=== PATIENT | female | born 1940 | race Caucasian/White ===

== ENCOUNTER 2024-09-10 12:24 | Emergency (ER) | payer OTHER, SELFPAY ==
[2024-09-10] VITALS (7 sets, daily range): BP systolic 124–173; BP diastolic 88–105; PULSE 74–99; RESP 12–18; TEMP 36.4; O2SAT 94–99
--- NOTE | 2024-09-10 14:33 | ED_ITS ---
HPI - General Adult General Date Seen: 09/10/24 Chief complaint: Nausea/Vomiting Stated complaint: vomitting, dehydration, diarrhea Time Seen by Provider: 09/10/24 14:32 History of Present Illness HPI narrative: 84-year-old female presenting to the ER today with her son for evaluation of abdominal cramping, nausea, poor appetite, diarrhea. Also shortness of breath. Also grief. The patient [place] from the suburbs of [place], [place]. Past medical history includes cardiac disease (apparently has ejection fraction of 47%) no definite known core coronary artery blockages or stents. Patient does not know of any history of AFib. 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 She is not diabetic. No history of renal failure. She is on Bumex, metoprolol, losartan. She is on a statin for high cholesterol. Her unexpectedly about a month ago. Since then the patient has been having an extreme amount of grief. She came here to [place] to stay with her son. She is going through counseling and therapy because of her sign ificant grief. She has been having some trouble with intermittent diarrhea for the past few months. She describes that she saw a heel trimmer in [place] and apparently had some stool testing that was normal. She did not have a colonoscopy for the diarrhea. Her diarrhea has been getting worse lately. Also for the past several days she has had pretty significant lower abdominal cramping. She has had nausea. She has had very poor appetite. She has not been wanting to eat. She has not been wanting to drink. She has been at least forcing herself to take her pills every day. She has not had any fever. No bloody or black stools. She has been nauseous but not vomiting. She has been so weak because of dehydration that her family finally made her come to the ER today. She has also had some worsening shortness of breath lately. She is not sure if she is really short of breath or if she is just anxious and grieving. Related Data Previous Rx's ?Medication ?Instructions ?Recorded cephalexin 500 mg capsule 500 mg PO BID #10 caps 09/10/24 ondansetron HCl 4 mg tablet 4 mg PO Q8H PRN nausea and 09/10/24 vomiting #10 tabs Allergies Allergy/AdvReac Type Severity Reaction Status Date / Time No Known Drug Allergies Allergy Verified 09/10/24 16:17 [facility] Social History Smoking Status: Never smoker How often do you have a drink containing alcohol: never AUDIT-C Alcohol total score: 0 Non-prescribed substance use: denies use Exam Narrative: Exam Narrative: Constitutional: Appears well-developed and well-nourished. Alert. Initially uncomfortable anxious, nauseous. I get her an emesis bag and after doing some history and physical I am able to his sister and moving into bed and she is actually much calmer. Son is attentively at her side. HENT: Head: Atraumatic. Nose: Nose normal. Mouth/Throat: Oral mucosa is clear but dry.. no trismus. Pharynx normal. Tonsils symmetric. No tonsillar enlargement, erythema, or exudate. Eyes: Conjunctivae normal. EOM normal. Pupils equal, round, and reactive to light. No scleral icterus. Neck: Normal range of motion. Neck supple. No tracheal deviation present. No JVD Cardiovascular: Normal rate, regular rhythm. No gallop. No friction rub. No murmur heard. Symmetric radial artery pulses Pulmonary/Chest: Effort normal. No stridor. No respiratory distress. No wheezes. No rales. No rhonchi . No tenderness. Abdominal: Soft. Bowel sounds normal. No distension. No mass. Marked suprapubic and right lower quadrant tenderness. No rebound. Positive suprapubic guarding. Musculoskeletal: RUE: Normal range of motion. No tenderness. No deformity LUE: Normal range of motion. No tenderness. No deformity RLE: Normal range of motion. No edema. No tenderness. No deformity LLE: Normal range of motion. No edema. No tenderness. No deformity Neurological: Alert and oriented to person, place, and time. Normal strength. CN II-VII intact. No sensory deficit. GCS eye subscore is 4. GCS verbal subscore is 5. GCS motor subscore is 6. Normal coordination Skin: Skin is warm and dry. No rash noted. No pallor. Normal capillary refill. Psychiatric: Normal mood. Normal affect. Const: Vital Signs, click to edit/add: Vital Signs - 24 hr 09/10/24 12:37 09/10/24 16:00 Temperature 97.6 F Pulse Rate 80 Pulse Rate [Right Pulse Oximeter] 74 Respiratory Rate 18 14 Blood Pressure 140/96 H Blood Pressure [Ri ght Upper Arm] 137/88 Pulse Oximetry 99 96 Oxygen Delivery Me thod Room Air Course Course ED Course: Recheck-[id number]. Sitting up in bed. Son and svwaqvpl-th-ibq at her side. Patient says she feels little bit dizzy. If you feel sleepy. Still having some pain but not worse. No fever. She think she will be able to give a urine sample. With knee try p.o. challenge. Nausea is better. Discussed lab workup being reassuring so far. CT scan showing no acute inflammatory or surgical process. EKG nonischemic. Troponin still pending. Reevaluation(s) Reevaluation #1: Recheck-has been doing moderately well with p.o. challenge. Has had a few sips of water. His head 12 oz of apple juice. Eating some crackers. She did not want to eat her apple sauce. Overall she is feeling like she is keeping fluids down. Patient is requesting discharge in asking us to discontinue her IV. Reevaluation #2: Discussed test results with the patient, her son, her mywlldyv-uq-ibe. Family are supportive for her to discharge home in the water in that environment. Vital Signs Vital signs: Initial Vital Signs Temperature 97.6 F 09/10/24 12:37 Temperature Source Temporal Artery Scan 09/10/24 12:37 Pulse Rate 74 09/10/24 12:37 Pulse Rhythm Regular 09/10/24 12:37 Respiratory Rate 18 09/10/24 12:37 Blood Pressure 137/88 09/10/24 12:37 Blood Pressure Mean 104 09/10/24 12:37 Blood Pressure Position Sitting 09/10/24 12:37 Pulse Oximetry 99 09/10/24 12:37 Oxygen Delivery Method Room Air 09/10/24 12:37 Vital Signs Temperature 97.6 F 09/10/24 12:37 Pulse Rate 74 09/10/24 12:37 Respiratory Rate 18 09/10/24 12:37 Blood Pressure 137/88 09/10/24 12:37 Pulse Oximetry 99 09/10/24 12:37 Oxygen Delivery Method Room Air 09/10/24 12:37 Temperature 97.6 F 09/10/24 12:37 Pulse Rate 80 09/10/24 16:00 Respiratory Rate 14 09/10/24 16:00 Blood Pressure 140/96 H 09/10/24 16:00 Pulse Oximetry 96 09/10/24 16:00 Oxygen Delivery Method Room Air 09/10/24 12:37 Medications Administered Medications: Generic Name Dose Route Start Last Admin Trade Name Jordon PRN Reason Stop Dose Admin Hydromorphone HCl 0.5 mg 09/10/24 14:59 09/10/24 15:30 Hydromorphone 0.5 Mg/0.5 Ml Inj IVP 0.5 mg Q1H PRN Administration Pain Discontinued Medications Generic Name Dose Route Start Last Admin Trade Name Freq PRN Reason Stop Dose Admin Ketorolac Tromethamine 15 mg 09/10/24 14:59 09/10/24 15:29 Ketorolac 15 Mg/Ml Inj IVP 09/10/24 15:00 15 mg ONCE ONE Administration Ondansetron HCl 4 mg 09/10/24 14:59 09/10/24 15:29 Ondansetron 2 Mg/Ml Inj IVP 09/10/24 15:00 4 mg ONCE ONE Administration Medical Decision Making [facility] Narrative Medical decision making narrative: 84-year-old female presenting to the ER today by private car with her son and wyzepxyr-[id number] for evaluation of multiple symptoms. 1. GI. She has been experiencing some watery diarrhea for a couple of months and apparently has already had part of workup with GI in [place]. Workup so far is negative. She has had a ongoing diarrhea watery lately, also some new lower abdominal cramping. She was tender in the right lower quadrant and suprapubic draining on her exam today. Workup shows us slightly low white count. Normal hemoglobin. CT scan abdomen pelvis shows no acute inflammatory process such as appendicitis, diverticulitis, colitis no evidence for obstruction. Lactic acid is normal and no evidence for colitis on CT to suggest ischemia. LFTs and lipase are normal and she is not have any upper abdominal pain. At this point cause for her several week/month diarrhea is unclear. She has not had any further diarrhea here in the ER. No bloody or mucousy stools to suggest acute bacterial enteritis. The patient's speculates that her diarrhea of might be a side effect of some of her meds. We discussed that she should talk with her primary care provider about this and have medications adjusted by PCP. They agree. 2. Renal/electrolytes. She has had very poor oral intake at home for the past few days. Fortunately metabolic profile shows normal electrolytes, normal kidney function. Blood sugar normal. She does have some generalized weakness. 3. Cardiac. Also reporting some chronic shortness of breath. It has been worse lately but they attribute that to possible anxiety and grief because her about a month ago. Screening EKG shows sinus rhythm with a first- degree AV block and occasional PVCs but no acute ischemia. Troponin is normal. At this point in of the she is to be admitted for serial enzymes to screen for ACS.. 4. Psych. Patient wonders if all of this is ?in my head. ? There may be some underlay of anxiety and grief contributing/exacerbating her symptoms. She is not acutely depressed or at risk for self-harm. No evidence for psychosis. 5. Infectious disease. Does report a couple of months of watery diarrhea. Has been ongoing lately and on now also associated with poor appetite, nausea but no vomiting. No evidence for colitis or diverticulitis on her CT scan. No recent bloody or mucousy stool to raise concern for bacterial enteritis. She has apparently already had some outpatient workup through a GI doctor in [place] without a clear cause. At this point I do not see an indication to put her on antibiotics empirically for her diarrhea. Urinalysis shows positive nitrite which could indicate UTI. With her lower ab dominal pain will treat her with a course of cephalexin. 500 mg b.i.d. for 5 days. Urine culture pending. Lab Data Labs: Lab Results 09/10/24 09/10/24 Range/Units 15:00 15:25 WBC 4.22 L (4.50-11.00) K/uL RBC 4.98 (4.00-5.20) m/uL Hgb 14.5 (12.0-16.0) gm/dL Hct 47.4 (33.0-51.0) % MCV 95 (80-100) fL MCH 29 (26-34) pg MCHC 31 L (32-36) gm/dL RDW Coeff of Carole 13.1 (11.5-15.5) % Plt Count 179 (140-440) K/uL Neut % (Auto) 59.0 (42.0-72.0) % Lymph % (Auto) 23.2 (20-44) % [place] % (Auto) 14.7 H (0.0-11.0) % Eos % (Auto) 2.4 (0.0-7.0) % Baso % (Auto) 0.5 (0.0-3.0) % Neut # (Auto) 2.50 (1.7-7.0) K/uL Lymph # (Auto) 1.00 (0.90-2.90) K/uL [place] # (Auto) 0.60 (0.00-0.90) K/UL Eos # (Auto) 0.10 (0.00-0.50) K/uL Baso # (Auto) 0.00 (0.00-0.30) K/uL Abs Immat Gran (auto) 0.00 (0.00-0.30) K/uL Imm/Tot Granulo (auto) 0.2 % Sodium 138 (135-149) mmol/L Potassium 4.0 (3.6-5.1) mmol/L Chloride 107 (96-114) mmol/L Carbon Dioxide 24 (20-32) mmol/L Anion Gap 7 (7-15) mEq/L BUN 13 (7-30) mg/dL Creatinine 0.9 (0.5-1.5) mg/dL Estimated GFR 63 ml/min Glucose 86 (60-115) mg/dL Lactate 1.3 (0.5-1.9) mmol/L Calcium 9.4 (8.4-10.6) mg/dL Total Bilirubin 1.4 (0.1-1.5) mg/dL AST 25 (12-35) U/L ALT 23 (4-35) U/L Alkaline Phosphatase 89 (40-150) U/L Troponin I 0.01 (0.01-0.04) ng/mL Total Protein 6.9 (6.0-8.3) g/dL Albumin 4.2 (3.3-5.0) g/dL Lipase 76 (23-300) U/L Urine Color Yellow (Yellow) Urine Appearance Clear (Clear) Urine pH 5.5 (5.0-8.5) Ur Specific [place] 1.010 (1.000-1.030) Urine Protein Negative (Negative) Urine Glucose (UA) Negative (Negative) Urine Ketones Negative (Negative) Urine Blood Negative (Negative) Urine Nitrite Positive A (Negative) Urine Bilirubin Negative (Negative) Urine Urobilinogen 0.2 (0.2-1.0) Ur Leukocyte Esterase Negative (Negative) Urine RBC 0-2 (0-2) Urine WBC 2-5 (0-5) Ur Squamous Epith Cells None (None-Few) Urine Bacteria Many A (None) Imaging Data CT scan - abdomen: Attestation: I have reviewed the pertinent imaging results. Radiologist's impression: IMPRESSION: 1. Colonic diverticulosis without CT evidence of acute diverticulitis. 2. Moderate stool burden without evidence of bowel obstruction. 3. Small hiatal hernia. ECG Data Attestation: I personally reviewed and interpreted this ECG as follows: Interpretation: Normal sinus rhythm. Occasional PVCs Rate: 85 IN: 226. First degree AV block QRS axis: ST segment/T wave: No ST segment elevation or depression QTc: 454 Discharge Plan Discharge Clinical Impression: Nausea, Diarrhea, Acute UTI, Grief Patient Disposition: Home, Self-Care Condition: Stable Instructions: Urinary Tract Infection in Women (DC), Acute Diarrhea (ED) Additional Instructions: As we discussed, the cause for your diarrhea is not clear based on your workup here in the ER today. Please talk to your regular doctor about it. It is possible that the diarrhea as a side effect of your medications. Your urinalysis does show chemical findings of urinary tract infection. Were going to treat you with an xqzyfayena-fjvdpsdosk-dc treat your UTI. Use the Zofran if needed for nausea. If you have worsening pain, high fever, uncontrolled nausea vomiting, uncontrolled diarrhea or new symptoms such as bloody stool, worsening weakness, please come back to the ER right away to be rechecked. Prescriptions: New ondansetron HCl 4 mg tablet 4 mg PO Q8H PRN (Reason: nausea and vomiting) Qty: 10 0RF cephalexin 500 mg capsule 500 mg PO BID Qty: 10 0RF Follow Up/Referrals: Provider,Not a Local [Primary Care Provider] - Stand Alone Forms: [employer] Info Instructions
--- NOTE | 2024-09-10 14:59 | CRLHL7_ITS ---
For Patients: As a result of the Century Cures Act, medical imaging exams and procedure reports are released immediately into your electronic medical record. You may view this report before your referring provider. If you have questions, please contact your health care provider. INDICATION: LOWER ABD PAIN, DIARRHEA TECHNIQUE: CT of the abdomen and pelvis was obtained with 122 mL of Omnipaque 370 intravenous contrast. Please note that all CT scans at this facility use dose modulation, iterative reconstruction, and/or weight-based dosing when appropriate to reduce radiation dose to as low as reasonably achievable. COMPARISON: None. FINDINGS: Lower thorax: Mild bilateral dependent bronchiectasis. Scattered calcified granulomata. Minimal coronary artery calcification. Calcified right hilar lymph nodes. Liver and biliary tree: Normal. Gallbladder: Normal. Spleen: Mild scattered calcified granulomata. Pancreas: Normal. Adrenal glands: Normal. Kidneys and ureters: No hydronephrosis. No obstructing renal calculi. 1.7 centimeter right renal cyst (2/63). Gastrointestinal tract: Wwjlacgx-yu-lgrals sigmoid and descending colonic diverticulosis without CT evidence of acute diverticulitis. Moderate colonic diverticulosis is seen throughout the remaining colon. Moderate stool burden. No evidence of acute appendicitis. No evidence of bowel obstruction. Small hiatal hernia. Peritoneal cavity: Normal. Bladder: Normal. Pelvic organs: Status post hysterectomy. Vasculature: Mild calcification. Lymph nodes: Normal. Abdominal wall: Small fat containing periumbilical hernia. Musculoskeletal: Moderate degenerative changes of the visualized spine. Mild degenerative changes of the bilateral hips. IMPRESSION: 1. Colonic diverticulosis without CT evidence of acute diverticulitis. 2. Moderate stool burden without evidence of bowel obstruction. 3. Small hiatal hernia. Please note that all CT scans at this facility use dose modulation, iterative reconstruction, and/or weight-based dosing when appropriate to reduce radiation dose to as low as reasonably achievable. Dictated by Scott Snow MD @ 09/10/2024 5:02:47 PM (Electronically Signed)
[2024-09-10] MEDS: ONDANSETRON 2 MG/ML inj 4 MG IVP (15:29)
[2024-09-10] MEDS: KETOROLAC 15 MG/ML inj IVP (15:29)
[2024-09-10] MEDS: HYDROmorphone 0.5 mg/0.5 ml inj IVP (15:30)
[2024-09-10 15:42] LABS: Basophils Percent Auto 0.5 % (0.0-3.0); Eosinophils Percent Auto 2.4 % (0.0-7.0); Hematocrit 47.4 % (33.0-51.0); Hemoglobin* 14.5 gm/dL (12.0-16.0); Immature Granulocytes Pct Auto 0.2 %; Lactate* 1.3 mmol/L (0.5-1.9); Lymphocytes Percent Auto 23.2 % (20-44); Mean Corpuscular HGB Conc 31 gm/dL (32-36); Mean Corpuscular Hemoglobin 29 pg (26-34); Mean Corpuscular Volume 95 fL (80-100); Monocytes Percent Auto 14.7 % (0.0-11.0); Platelet Count* 179 K/uL (140-440); RDW Coefficient of Variation % 13.1 % (11.5-15.5); Red Blood Count 4.98 m/uL (4.00-5.20); White Blood Count* 4.22 K/uL (4.50-11.00)
[2024-09-10 15:44] LABS: Slide Review Reflex No
[2024-09-10 16:02] LABS: Albumin* 4.2 g/dL (3.3-5.0); Chloride* 107 mmol/L (96-114); Sodium* 138 mmol/L (135-149)
[2024-09-10 16:05] LABS: Alanine Aminotransferase* 23 U/L (4-35); Alkaline Phosphatase* 89 U/L (40-150); Anion Gap 7 mEq/L (7-15); Aspartate Amino Transferase* 25 U/L (12-35); Bilirubin Total* 1.4 mg/dL (0.1-1.5); Blood Urea Nitrogen* 13 mg/dL (7-30); Calcium* 9.4 mg/dL (8.4-10.6); Carbon Dioxide* 24 mmol/L (20-32); Creatinine* 0.9 mg/dL (0.5-1.5); Estimated Glomerular Filt Rate 63 ml/min; Glucose* 86 mg/dL (60-115); Lipase* 76 U/L (23-300); Total Protein* 6.9 g/dL (6.0-8.3)
[2024-09-10 17:20] LABS: Troponin I* 0.01 ng/mL (0.01-0.04)
[2024-09-10 17:59] LABS: Appearance Urine Clear (Clear); Bilirubin Urine Negative (Negative); Blood Urine Negative (Negative); Color Urine Yellow (Yellow); Glucose Urine Negative (Negative); Ketones Urine Negative (Negative); Leukocyte Esterase Urine Negative (Negative); Nitrite Urine Positive (Negative); Protein Urine Negative (Negative); Urobilinogen Urine 0.2 (0.2-1.0); pH Urine 5.5 (5.0-8.5)
[2024-09-10 18:05] LABS: RBC Urine 0-2 (0-2)
[2024-09-10 18:06] LABS: Bacteria Urine Many
--- NOTE | 2024-09-11 09:09 | ED.NURSE ---
Patient's son Kaushik called w/ patient present and reports that patient has developed a whole body rash. Here yesterday and dx w/ UTI, prescribed Keflex 500mg BID. Patient has taken 1 dose and awoke w/ rash. Denies any tongue or lip swelling, SOB, stridor/wheezing or other signs of allergic reaction. Spoke w/ Dr. Rosales and he gave verbal for Bactrim DS BID x 3 days. Also advised patient to try Benadryl for rash and to present to nearest ED if there are any worsening S/S of allergic reaction. Confirmed pharmacy preference w/ patient. Patient also mentions aside from rash her abdominal pain has improved. Patient and son verbalized understanding of all instructions. Advised to call back or represent to ED w/ new concerns.
--- NOTE | 2024-09-14 08:01 | ED.GENADULT ---
HPI - General Adult General Date Seen: 09/10/24 Chief complaint: Nausea/Vomiting Stated complaint: vomitting, dehydration, diarrhea Time Seen by Provider: 09/10/24 14:32 History of Present Illness HPI narrative: addendum to 09/10 Urine Cx grows pansensitive E coli. on keflex. Related Data Previous Rx's ?Medication ?Instructions ?Recorded cephalexin 500 mg capsule 500 mg PO BID #10 caps 09/10/24 ondansetron HCl 4 mg tablet 4 mg PO Q8H PRN nausea and 09/10/24 vomiting #10 tabs Allergies Allergy/AdvReac Type Severity Reaction Status Date / Time cephalexin (From Keflex) Allergy Intermediate Rash Verified 09/11/24 09:17 PFSH PFS Social History Smoking Status: Never smoker How often do you have a drink containing alcohol: never AUDIT-C Alcohol total score: 0 Non-prescribed substance use: denies use Course Vital Signs Vital signs: Initial Vital Signs Temperature 97.6 F 09/10/24 12:37 Temperature Source Temporal Artery Scan 09/10/24 12:37 Pulse Rate 74 09/10/24 12:37 Pulse Rhythm Regular 09/10/24 12:37 Respiratory Rate 18 09/10/24 12:37 Blood Pressure 137/88 09/10/24 12:37 Blood Pressure Mean 104 09/10/24 12:37 Blood Pressure Position Sitting 09/10/24 12:37 Pulse Oximetry 99 09/10/24 12:37 Oxygen Delivery Method Room Air 09/10/24 12:37 Vital Signs Temperature 97.6 F 09/10/24 12:37 Pulse Rate 74 09/10/24 12:37 Respiratory Rate 18 09/10/24 12:37 Blood Pressure 137/88 09/10/24 12:37 Pulse Oximetry 99 09/10/24 12:37 Oxygen Delivery Method Room Air 09/10/24 12:37 Temperature 97.6 F 09/10/24 18:43 Pulse Rate 74 09/10/24 18:43 Respiratory Rate 16 09/10/24 18:43 Blood Pressure 137/88 09/10/24 18:43 Pulse Oximetry 97 09/10/24 18:02 Oxygen Delivery Method Room Air 09/10/24 12:37 Medications Administered Medications: Discontinued Medications Generic Name Dose Route Start Last Admin Trade Name Freq PRN Reason Stop Dose Admin Hydromorphone HCl 0.5 mg 09/10/24 14:59 09/10/24 15:30 Hydromorphone 0.5 Mg/0.5 Ml Inj IVP 0.5 mg Q1H PRN Administration Pain Ketorolac Tromethamine 15 mg 09/10/24 14:59 09/10/24 15:29 Ketorolac 15 Mg/Ml Inj IVP 09/10/24 15:00 15 mg ONCE ONE Administration Ondansetron HCl 4 mg 09/10/24 14:59 09/10/24 15:29 Ondansetron 2 Mg/Ml Inj IVP 09/10/24 15:00 4 mg ONCE ONE Administration Medical Decision Making Lab Data Labs: Lab Results 09/10/24 09/10/24 Range/Units 15:00 15:25 WBC 4.22 L (4.50-11.00) K/uL RBC 4.98 (4.00-5.20) m/uL Hgb 14.5 (12.0-16.0) gm/dL Hct 47.4 (33.0-51.0) % MCV 95 (80-100) fL MCH 29 (26-34) pg MCHC 31 L (32-36) gm/dL RDW Coeff of Carole 13.1 (11.5-15.5) % Plt Count 179 (140-440) K/uL Neut % (Auto) 59.0 (42.0-72.0) % Lymph % (Auto) 23.2 (20-44) % [place] % (Auto) 14.7 H (0.0-11.0) % Eos % (Auto) 2.4 (0.0-7.0) % Baso % (Auto) 0.5 (0.0-3.0) % Neut # (Auto) 2.50 (1.7-7.0) K/uL Lymph # (Auto) 1.00 (0.90-2.90) K/uL [place] # (Auto) 0.60 (0.00-0.90) K/UL Eos # (Auto) 0.10 (0.00-0.50) K/uL Baso # (Auto) 0.00 (0.00-0.30) K/uL Abs Immat Gran (auto) 0.00 (0.00-0.30) K/uL Imm/Tot Granulo (auto) 0.2 % Sodium 138 (135-149) mmol/L Potassium 4.0 (3.6-5.1) mmol/L Chloride 107 (96-114) mmol/L Carbon Dioxide 24 (20-32) mmol/L Anion Gap 7 (7-15) mEq/L BUN 13 (7-30) mg/dL Creatinine 0.9 (0.5-1.5) mg/dL Estimated GFR 63 ml/min Glucose 86 (60-115) mg/dL Lactate 1.3 (0.5-1.9) mmol/L Calcium 9.4 (8.4-10.6) mg/dL Total Bilirubin 1.4 (0.1-1.5) mg/dL AST 25 (12-35) U/L ALT 23 (4-35) U/L Alkaline Phosphatase 89 (40-150) U/L Troponin I 0.01 (0.01-0.04) ng/mL Total Protein 6.9 (6.0-8.3) g/dL Albumin 4.2 (3.3-5.0) g/dL Lipase 76 (23-300) U/L Urine Color Yellow (Yellow) Urine Appearance Clear (Clear) Urine pH 5.5 (5.0-8.5) Ur Specific [place] 1.010 (1.000-1.030) Urine Protein Negative (Negative) Urine Glucose (UA) Negative (Negative) Urine Ketones Negative (Negative) Urine Blood Negative (Negative) Urine Nitrite Positive A (Negative) Urine Bilirubin Negative (Negative) Urine Urobilinogen 0.2 (0.2-1.0) Ur Leukocyte Esterase Negative (Negative) Urine RBC 0-2 (0-2) Urine WBC 2-5 (0-5) Ur Squamous Epith Cells None (None-Few) Urine Bacteria Many A (None) Discharge Plan Discharge Clinical Impression: Nausea, Diarrhea, Acute UTI, Grief Patient Disposition: Home, Self-Care Condition: Stable Instructions: Urinary Tract Infection in Women (DC), Acute Diarrhea (ED) Additional Instructions: As we discussed, the cause for your diarrhea is not clear based on your workup here in the ER today. Please talk to your regular doctor about it. It is possible that the diarrhea as a side effect of your medications. Your urinalysis does show chemical findings of urinary tract infection. Were going to treat you with an fsqbjjurtb-kqnouqjgxr-vc treat your UTI. Use the Zofran if needed for nausea. If you have worsening pain, high fever, uncontrolled nausea vomiting, uncontrolled diarrhea or new symptoms such as bloody stool, worsening weakness, please come back to the ER right away to be rechecked. Prescriptions: New ondansetron HCl 4 mg tablet 4 mg PO Q8H PRN (Reason: nausea and vomiting) Qty: 10 0RF cephalexin 500 mg capsule 500 mg PO BID Qty: 10 0RF Follow Up/Referrals: Provider,Not a Local [Primary Care Provider] - Stand Alone Forms: [employer] Info Instructions
== END 2024-09-10 18:20 | disposition home or self-care (01) ==
PROVIDERS: Emergency Provider Emergency Medicine
DX: N39.0 Urinary tract infection, site not specified (principal); Z63.4 Disappearance and death of family member
CPT/HCPCS: 36415; 74177; 80053; 81001; 83605; 83690; 84484; 85025; 87086; 87186; 93005; 96374; 96375; 99281; 99284; 99285; J1171; J1885; J2405; Q9967

== ENCOUNTER 2025-01-30 11:06 | Emergency (ER) | payer OTHER, SELFPAY ==
--- OUTSIDE RECORDS SUMMARY | 2025-01-30 11:09 | XMS_ITS | Clinical Summary ---
Author Organization [facility] Address [address] [place] [id number] Care Team Providers Care Electrocardiograph Technician Name Role Phone Clinician, Not Found MD Primary Care Provider Un available Source Comments You are receiving this document as you are listed as the primary care provider,follow-up provider, or the patient has been referred to you for consultation.This is in compliance with the Medicare and[facility] EHR Incentive Program,which states Providers who transition their patient to another setting of careor provider of care or refers their patient to another provider of care shouldprovide summary care record for each transition of care or referral. [facility] Allergies No known active allergies Medications apixaban (ELIQUIS) 5 MG tablet Take by mouth two times a day. Active lisinopril (ZESTRIL) 2.5 MG tablet Take 2.5 mg by mouth daily. Active acetaminophen-c odeine (TYLENOL NO. . 3) 300-30 MG tablet Take 1-2 Tablets by mouth every 6 hours as needed for Pain. 15 Tablet 07/09/2019 Active Active Problems No known active problems Social History Tobacco Use Types Packs/Day Years Used Date Smoking Tobacco: Never Smokeless Tobacco: Never Comments No Sex and Gender Information Value Date Recorded Sex Assigned at Not on file Legal Sex Female 11:46 AM CDT Gender Identity Not on file Sexual Orientation Not on file Last Filed Vital Signs Vital Sign Reading Time Taken Comments Blood Pressure 143/76 07/09/2019 11:22 AM CDT Pulse 79 07/09/2019 11:22 AM CDT Temperature 36.7 C (98 F) 07/09/2019 11:22 AM CDT Respiratory Rate 18 07/09/2019 11:22 AM CDT Oxygen Saturation 98% 07/09/2019 11:22 AM CDT Inhaled Oxygen Concentration - - Weight - - Height - - Body Mass Index - - Plan of Treatment Health Maintenance Due Date Last Done Comments DTaP/Tdap/Td (1 - Tdap) 1960 Pneumococcal 50+ Yrs (1 of 1 - PCV) 1991 Zoster/Shingles (1 of 2) 1991 RSV (1 - 1-dose 75+ series) 2016 COVID-19 Vaccine (1 - 2023-2 5 season) 2024 Influenza (#1) 2024 Medicare Annual Wellness Visit 10/31/2024 HepA Aged Out No longer eligi ble based on patient's age to complete this topic HepB Aged Out No longer eligi ble based on patient's age to complete this topic Hib Aged Out No longer eligi ble based on patient's age to complete this topic IPV (Polio) Aged Out No longer eligi ble based on patient's age to complete this topic MCV4 Aged Out No longer eligi ble based on patient's age to complete this topic Meningococcal B Aged Out No longer el igible based on patient's age to complete this topic Insurance Care Teams Electrocardiograph Technician Relationship Specialty Start Date End Date Clinician, Not Found, [place] [address] PCP - General 5/18/15
[2025-01-30 11:35] VITALS: BP 152/84; PULSE 84; RESP 18; TEMP 36.9; O2SAT 94; BMI 37.4
[2025-01-30 12:06] VITALS: BP 148/86; PULSE 75; RESP 18; O2SAT 96
--- NOTE | 2025-01-30 12:48 | ED.GENADULT ---
HPI - General Adult General Chief complaint: Extremity Pain/Injury, Lower Stated complaint: L side pain Time Seen by Provider: 01/30/25 11:09 History of Present Illness HPI narrative: This 84-year-old female resides in [place] and is visiting here because she has children here. She states that she is here for an extended time because her recently and her daughter had a stroke. She has a history of osteoarthritis in her left knee and has been getting steroid injections over the past couple years. She has had increased pain recently and is due for another injection. She uses a cane for ambulating and now is reporting pain in her left groin and hip region. She does not report any fall or injury event. She is not taking any medicines for pain. She states that she is on Eliquis because of a previous pulmonary embolism. Related Data Home Medications ?Medication ?Instructions ?Recorded ?Confirmed apixaban 5 mg tablet (Eliquis) 5 mg PO BID 11/05/24 01/30/25 bumetanide 0.5 mg tablet 0.5 mg PO QDAY PRN 11/05/24 01/30/25 dapagliflozin propanediol 10 mg 10 mg PO QAM 11/05/24 11/05/24 tablet (Farxiga) losartan 50 mg tablet 50 mg PO QDAY 11/05/24 01/30/25 mecobalamin (vitamin B12) 2,500 1,000 mcg PO 11/05/24 11/05/24 mcg chewable tablet metoprolol succinate 25 mg 25 mg PO QDAY 11/05/24 01/30/25 tablet,extended release 24 hr rosuvastatin 5 mg tablet 5 mg PO QDAY 11/05/24 01/30/25 Previous Rx's ?Medication ?Instructions ?Recorded albuterol sulfate 90 mcg/actuation 2 puff inhalation Q4-6H PRN 11/05/24 aerosol inhaler shortness of breath or wheezing #8.5 grams cyclobenzaprine 10 mg tablet 10 mg PO TID #15 tabs 01/30/25 hydrocodone 5 mg-acetaminophen 325 1 tab PO Q4-6H PRN pain #15 tabs 01/30/25 mg tablet methylprednisolone 4 mg tablets in See Rx Instructions PO .COMPLEX 01/30/25 a dose pack (Medrol (Deshawn)) #21 ea Allergies Allergy/AdvReac Type Severity Reaction Status Date / Time cephalexin (From [employer]) Allergy Intermediate Rash Verified 11/05/24 15:23 Review of Systems Status of ROS: Reports: 10 or more systems reviewed and unremarkable except as noted in History and below Narrative: Constitutional: No fevers, no weight gain or loss. Eyes: No discharge. No vision changes. HENT: No congestion, no sore throat, no ear pain. Cardiovascular: No chest pain, no palpitations. Respiratory: No shortness of breath, no wheezes, no cough. Gastrointestinal: No abdominal pain, no vomiting, no diarrhea. Genitourinary: No dysuria, no hematuria. Musculoskeletal: Normal range of motion. Left hip and knee pain as described above. Skin: No rashes, no pruritis. Neurological: No dizziness, weakness, sensory change, speech change. Endo/Heme/Allergies: No bruising or bleeding. No polydipsia. Pysch: no suicidality, no anxiety. All other systems reviewed and are negative. PFSH PFSH Social History Smoking Status: Never smoker Do you use any of these nicotine containing products: None Second hand tobacco smoke exposure: No How often do you have a drink containing alcohol: never How often do you have six or more drinks on one occasion: Never AUDIT-C Alcohol total score: 0 Non-prescribed substance use: denies use service: No Exam Narrative: Exam Narrative: Constitutional: Well-developed, well-nourished, no acute distress. HEENT: Normocephalic, atraumatic. Neck: Normal range of motion. Nontender. Supple. Heart: Regular. No murmurs. Normal rate. Intact distal pulses. Lungs: Clear to auscultation. No chest discomfort. No wheezes, rhonchi, or rales. Abdomen: Normal bowel sounds. Nontender. No rebound tenderness. Genitalia: Deferred. Back: No midline tenderness. Normal range of motion. Extremities: Normal range of motion. No injury. She has chronic arthritic pain in her left knee. Skin: Intact. No rash. Warm. No erythema or pallor. Neurologic: No altered sensation. No weakness. Alert and oriented. Psychiatric: No suicidality. No anxiety or depression. No insomnia. Nursing notes and vitals signs are reviewed. Const: Vital Signs, click to edit/add: Vital Signs - 24 hr 01/30/25 11:35 01/30/25 12:06 Temperature 98.5 F Pulse Rate 75 Pulse Rate [Pulse Oximeter] 84 Respiratory Rate 18 18 Blood Pressure 148/86 H Blood Pressure [Ri ght Upper Arm] 152/84 H Pulse Oximetry 94 96 Oxygen Delivery Me thod Room Air Course Vital Signs Vital signs: Initial Vital Signs Temperature 98.5 F 01/30/25 11:35 Temperature Source Temporal Artery Scan 01/30/25 11:35 Pulse Rate 84 01/30/25 11:35 Respiratory Rate 18 01/30/25 11:35 Blood Pressure 152/84 H 01/30/25 11:35 Blood Pressure Mean 106 H 01/30/25 11:35 Pulse Oximetry 94 01/30/25 11:35 Oxygen Delivery Method Room Air 01/30/25 11:35 Vital Signs Temperature 98.5 F 01/30/25 11:35 Pulse Rate 84 01/30/25 11:35 Respiratory Rate 18 01/30/25 11:35 Blood Pressure 152/84 H 01/30/25 11:35 Pulse Oximetry 94 01/30/25 11:35 Oxygen Delivery Method Room Air 01/30/25 11:35 Temperature 98.5 F 01/30/25 11:35 Pulse Rate 75 01/30/25 12:06 Respiratory Rate 18 01/30/25 12:06 Blood Pressure 148/86 H 01/30/25 12:06 Pulse Oximetry 96 01/30/25 12:06 Oxygen Delivery Method Room Air 01/30/25 11:35 Medical Decision Making MDM Narrative Medical decision making narrative: This patient comes in with chronic left knee pain and now has developed some pain in her groin. She states that she often does not have any pain there but if she moves in a certain way or makes certain maneuver this pain becomes rather significant in the medial aspect of her left hip into the groin. She does not report any injury event or strenuous activity recently. She is visiting from [place] and plans to return home soon and will follow up with her primary physician there. There is no mechanism of injury today that requires imaging studies. I did offer such in the patient declined them. She did receive prescription for [place], Flexeril, and Medrol Dosepak to help with her symptoms. Discharge Plan Discharge Clinical Impression: Acute knee pain, Acute hip pain Patient Disposition: Home, Self-Care Condition: Stable Additional Instructions: Take medication as needed and directed. Follow up with MD for ongoing management. Return if worsening. Prescriptions: New cyclobenzaprine 10 mg tablet 10 mg PO TID Qty: 15 0RF hydrocodone-acetaminophen 5-325 mg tablet 1 tab PO Q4-6H PRN (Reason: pain) Qty: 15 0RF methylprednisolone [Medrol (Deshawn)] 4 mg tablets,dose pack See Rx Instructions .ROUTE .COMPLEX Qty: 21 0RF Rx Instructions: orally per package directions No Action mecobalamin (vitamin B12) 2,500 mcg tablet,chewable 1,000 mcg PO losartan 50 mg tablet 50 mg PO QDAY dapagliflozin propanediol [Farxiga] 10 mg tablet 10 mg PO QAM Eliquis 5 mg tablet 5 mg PO BID bumetanide 0.5 mg tablet 0.5 mg PO QDAY PRN rosuvastatin 5 mg tablet 5 mg PO QDAY metoprolol succinate 25 mg tablet extended release 24 hr 25 mg PO QDAY albuterol sulfate 90 mcg/actuation HFA aerosol inhaler 2 puff inhalation Q4-6H PRN (Reason: shortness of breath or wheezing) Qty: 8.5 0RF Follow Up/Referrals: Provider,Not a Local [Primary Care Provider] - Stand Alone Forms: [facility] Info Instructions
--- OUTSIDE RECORDS SUMMARY | 2025-01-30 13:13 | XMS_ITS | Clinical Summary ---
Author Organization [facility] Address [address] [place] [id number] Care Team Providers Care Fast Food Team Member Name Role Phone Clinician, Not Found MD Primary Care Provider Un available Source Comments You are receiving this document as you are listed as the primary care provider,follow-up provider, or the patient has been referred to you for consultation.This is in compliance with the Medicare and[facility] Incentive Program,which states Providers who transition their patient to another setting of careor provider of care or refers their patient to another provider of care shouldprovide summary care record for each transition of care or referral. [facility] Allergies No known active allergies [...] to complete this topic Insurance Care Teams Fast Food Team Member Relationship Specialty Start Date End Date Clinician, Not Found, [place] [address] PCP - General 5/18/15
== END 2025-01-30 13:15 | disposition home or self-care (01) ==
PROVIDERS: Emergency Provider Emergency Medicine Emergency Medical Services
DX: M25.562 Pain in left knee (principal); M25.552 Pain in left hip
CPT/HCPCS: 99283; 99284

== ENCOUNTER 2025-05-08 10:39 | Inpatient (IN) | payer OTHER, SELFPAY ==
[2025-05-08] VITALS (30 sets, daily range): BP systolic 94–182; BP diastolic 43–142; PULSE 73–145; RESP 13–25; TEMP 36.1–36.7; O2SAT 91–99; BMI 35.0
--- OUTSIDE RECORDS SUMMARY | 2025-05-08 10:41 | XMS_ITS | Clinical Summary ---
Author Organization [facility] Address [address] [place] [id number] Care Team Providers Care Nurse Assistant Name Role Phone Clinician, Not Found MD Primary Care Provider Un available Source Comments You are receiving this document as you are listed as the primary care provider,follow-up provider, or the patient has been referred to you for consultation.This is in compliance with the Medicare and[facility]centive [facility],which states Providers who transition their patient to another setting of careor provider of care or refers their patient to another provider of care shouldprovide summary care record for each transition of care or referral. [facility] Allergies No known active allergies [...] Maintenance Due Date Last Done Comments DTaP/Tdap/Td Vaccine (1 - Tdap) 1960 Pneumococcal Vaccine 50+ Yrs (1 of 1 - PCV) 1991 Zoster/Shingles Vaccine (1 of 2) 1991 RSV Vaccine (1 - 1-dose 75+ series) 2016 COVID-19 Vaccine (1 - 2023-2 5 season) 2024 Medicare Annual Wellness Visit 10/31/2024 Influenza Vaccine (#1) 2025 HepA Vaccine Aged Out No longer eligi ble based on patient's age to complete this topic HepB Vaccine Aged Out No longer eligi ble based on patient's age to complete this topic Hib Vaccine Aged Out No longer eligi ble based on patient's age to complete this topic IPV (Polio) Vaccine Aged Out No longe r eligible based on patient's age to complete this topic MCV4 Vaccine Aged Out No longer eligi ble based on patient's age to complete this topic Meningococcal B Vaccine Aged Out No l onger eligible based on patient's age to complete this topic Insurance Member Subscriber Plan / Payer (Ef fective 2014-Present) Name:Nitza Tamez Relation to Subscriber:Self Name:Nitza Tamez Payer ID:Not on file Type:Medicare Address: [facility] [address] [id number] Care Teams Nurse Assistant Relationship Specialty Start Date End Date Clinician, Not Found, [place] [address] PCP - General 03/17/15
--- NOTE | 2025-05-08 11:15 | CRLHL7_ITS ---
For Patients: As a result of the Century Cures Act, medical imaging exams and procedure reports are released immediately into your electronic medical record. You may view this report before your referring provider. If you have questions, please contact your health care provider. INDICATION: Abdominal pain COMPARISON: 09/10/2024 CT of the abdomen and pelvis TECHNIQUE: Single frontal radiographic view(s) of the abdomen. FINDINGS: No focal abnormally dilated loops of bowel are detected. Moderate colonic stool volume. There are osseous degenerative changes. IMPRESSION: Moderate colonic stool volume. Dictated by Ori Rushing MD @ 05/08/2025 11:57:48 AM (Electronically Signed)
[2025-05-08] MEDS: ONDANSETRON 2 MG/ML inj 4 MG IVP (12:21)
[2025-05-08 12:30] LABS: Lactate* 1.6 mmol/L (0.5-1.9)
[2025-05-08 12:31] LABS: Hematocrit 46.5 % (33.0-51.0); Hemoglobin* 14.2 gm/dL (12.0-16.0); Immature Granulocytes Abs Auto 0.02 K/uL (0.00-0.30); Immature Granulocytes Pct Auto 0.3 %; Mean Corpuscular HGB Conc 31 gm/dL (32-36); Mean Corpuscular Hemoglobin 29 pg (26-34); Mean Corpuscular Volume 96 fL (80-100); RDW Coefficient of Variation % 14.1 % (11.5-15.5); Red Blood Count 4.86 m/uL (4.00-5.20); White Blood Count* 7.09 K/uL (4.50-11.00)
[2025-05-08 12:33] LABS: Lymphocytes Absolute Auto 1.00 K/uL (0.90-2.90); Slide Review Reflex No
[2025-05-08 12:43] LABS: Appearance Urine Clear (Clear)
[2025-05-08 12:48] LABS: Albumin* 4.0 g/dL (3.3-5.0); Chloride* 111 mmol/L (96-114); Mono Screen* Negative (Negative)
[2025-05-08 12:49] LABS: Potassium* 3.9 mmol/L (3.6-5.1); Sodium* 142 mmol/L (135-149)
[2025-05-08 12:51] LABS: Alanine Aminotransferase* 37 U/L (4-35); Alkaline Phosphatase* 74 U/L (40-150); Anion Gap 8 mEq/L (7-15); Aspartate Amino Transferase* 28 U/L (12-35); Bilirubin Direct* 0.1 mg/dL (0.0-0.5); Bilirubin Total* 1.7 mg/dL (0.1-1.5); Blood Urea Nitrogen* 19 mg/dL (7-30); Carbon Dioxide* 23 mmol/L (20-32); Creatinine* 0.9 mg/dL (0.5-1.5); Est. Creatinine Clearance* 39.20; Estimated Glomerular Filt Rate 63 ml/min; Total Protein* 6.8 g/dL (6.0-8.3)
[2025-05-08 12:52] LABS: Calcium* 9.3 mg/dL (8.4-10.6); Creatine Kinase* 37 U/L (41-117); Glucose* 105 mg/dL (60-115)
[2025-05-08 12:57] LABS: Acetaminophen* < 10.0 ug/mL (10.0-30.0); Salicylate* < 1.0 mg/dL (1.0-10)
--- NOTE | 2025-05-08 12:57 | ED.GENADULT ---
HPI - General Adult General Chief complaint: Weakness <Bell Quinn MD - Last Filed: 05/08/25 15:56> Stated complaint: Legs turning blue, constipation, weakness <Bell Quinn MD - Last Filed: 05/08/25 15:56> Time Seen by Provider: 05/08/25 10:59 <Bell Quinn MD - Last Filed: 05/08/25 15:56> Source: patient and family <Bell Quinn MD - Last Filed: 05/08/25 15:56> Mode of arrival: ambulatory <Bell Quinn MD - Last Filed: 05/08/25 15:56> Limitations: no limitations <Bell Quinn MD - Last Filed: 05/08/25 15:56> History of Present Illness HPI narrative: 85-year-old female coming in today with multiple concerns. Patient states that ?everything hurts?. She states that she can not sleep at night but her son states that she sleeps from 18-20 hours per day. She naps frequently throughout the day. States that she can not eat anything, states that everything she does if makes her want to throw up. Oscillates between diarrhea and constipation. Has not had a bowel movement for 4 days. Feels abdominal pressure discomfort. Patient states that she is exhausted, has no energy just feels like something is wrong with her. She denies a headache, blurry vision, ringing in her ears, confusion, word-finding difficulty. She does endorse dizziness, especially with standing that has been going on for weeks. She also sometimes feels like she has to hold on to the wall when walking - unclear if because of dizziness or weakness. recently , this was a very traumatic experience. Grief and trauma are at play according to her son. Family also concerned because she had an episode where her legs turned blue earlier today. History of DVTs, on anticoagulation. History of cardiac disease. Looking through patient's record she has been having intermittent diarrhea for quite some time along with lower abdominal cramping. Nausea is also not new today. And has been documented in previous visits as far as August of last year. <Bell Quinn MD - Last Filed: 05/08/25 15:56> Related Data Home medications: Home Medications ?Medication ?Instructions ?Recorded ?Confirmed apixaban 5 mg tablet (Eliquis) 5 mg PO BID 11/05/24 05/08/25 bumetanide 0.5 mg tablet 0.5 mg PO QDAY PRN 11/05/24 05/08/25 dapagliflozin propanediol 10 mg 10 mg PO QAM 11/05/24 11/05/24 tablet (Farxiga) losartan 50 mg tablet 50 mg PO QDAY 11/05/24 05/08/25 mecobalamin (vitamin B12) 2,500 1,000 mcg PO DAILY 11/05/24 05/08/25 mcg chewable tablet rosuvastatin 5 mg tablet 5 mg PO QDAY 11/05/24 05/08/25 cyanocobalamin (vitamin B-12) 1,000 mcg PO DAILY 05/08/25 05/08/25 1,000 mcg capsule escitalopram oxalate 5 mg tablet 5 mg PO DAILY 05/08/25 05/08/25 Previous Rx's ?Medication ?Instructions ?Recorded albuterol sulfate 90 mcg/actuation 2 puff inhalation Q4-6H PRN 11/05/24 aerosol inhaler shortness of breath or wheezing #8.5 grams cyclobenzaprine 10 mg tablet 10 mg PO TID #15 tabs 01/30/25 hydrocodone 5 mg-acetaminophen 325 1 tab PO Q4-6H PRN pain #15 tabs 01/30/25 mg tablet methylprednisolone 4 mg tablets in See Rx Instructions PO .COMPLEX 01/30/25 a dose pack (Medrol (Deshawn)) #21 ea <Bell Quinn MD - Last Filed: 05/08/25 15:56> Allergies/adverse reactions: Allergies Allergy/AdvReac Type Severity Reaction Status Date / Time cephalexin (From Keflex) Allergy Intermediate Rash Verified 05/08/25 10:58 lexy Allergy Mild Rash Uncoded 05/08/25 10:58 <Bell Quinn MD - Last Filed: 05/08/25 15:56> Review of Systems Status of ROS: Reports: 10 or more systems reviewed and unremarkable except as noted in History and below <Bell Quinn MD - Last Filed: 05/08/25 15:56> PFSH PFS Social History: Social History Smoking Status: Never smoker Do you use any of these nicotine containing products: None Second hand tobacco smoke exposure: No How often do you have a drink containing alcohol: never How often do you have six or more drinks on one occasion: Never AUDIT-C Alcohol total score: 0 Non-prescribed substance use: denies use service: No <Bell Quinn MD - Last Filed: 05/08/25 15:56> Exam Narrative: Exam Narrative: Well-nourished well-developed patient, tearful. Alert and oriented x3. Answers questions appropriately. Mood is quite sad. Thoughts are goal oriented and rational. No tangential or magical thinking noted. Patient speaks in full sentences without needing to catch her breath. Patient appears quite tired with large dark circles under her eyes. HEENT: Normocephalic atraumatic. Pupils are equally round reactive to light. Extraocular muscles are intact. Conjunctivae are moist without any icterus noted. Moist mucous membranes. Cardiovascular: Heart is irregularly irregular. Tachycardic. Lungs: Clear to auscultation bilaterally no wheezes rhonchi or rales are appreciated. Patient takes deep breaths without any discomfort. Abdomen: Soft and nondistended with normal bowel sounds. No tenderness with firm auscultation with the stethoscope. Extremities: Bilateral lower extremities are without edema. Normal DP and PT pulses. Normal coloration, multiple spider veins. Normal capillary refill. Skin: Well perfused without any obvious rashes. <Bell Quinn MD - Last Filed: 05/08/25 15:56> Const: Vital Signs, click to edit/add: Vital Signs - 24 hr 05/08/25 10:44 05/08/25 12:20 05/08/25 12:42 Temperature 97.0 F L Pulse Rate 125 H Pulse Rate [Right Pulse Oximeter] 74 Respiratory Rate 20 20 Blood Pressure 97/83 Blood Pressure [Le ft Upper Arm] 119/80 Pulse Oximetry 97 96 97 Oxygen Delivery Me thod Room Air Oxygen Flow Rate 05/08/25 13:02 05/08/25 13:32 05/08/25 14:38 Temperature Pulse Rate 116 H 103 H 145 H Pulse Rate [Right Pulse Oximeter] Respiratory Rate 16 20 24 Blood Pressure 96/77 116/96 H 104/70 Blood Pressure [Le ft Upper Arm] Pulse Oximetry 99 98 93 Oxygen Delivery Me thod Oxygen Flow Rate 05/08/25 14:47 05/08/25 15:01 05/08/25 15:16 Temperature Pulse Rate 137 H 98 90 Pulse Rate [Right Pulse Oximeter] Respiratory Rate 20 14 17 Blood Pressure 123/100 H 102/80 113/81 Blood Pressure [Le ft Upper Arm] Pulse Oximetry 94 98 97 Oxygen Delivery Me thod Oxygen Flow Rate 05/08/25 15:32 05/08/25 15:47 05/08/25 15:58 Temperature Pulse Rate 113 H 80 Pulse Rate [Right Pulse Oximeter] Respiratory Rate 13 18 Blood Pressure 109/74 106/75 Blood Pressure [Le ft Upper Arm] Pulse Oximetry 99 91 99 Oxygen Delivery Me thod Nasal Cannula Oxygen Flow Rate 2 05/08/25 16:16 05/08/25 16:31 05/08/25 17:04 Temperature Pulse Rate 97 110 H 78 Pulse Rate [Right Pulse Oximeter] Respiratory Rate 17 19 20 Blood Pressure 117/90 H 113/93 H 182/142 H Blood Pressure [Le ft Upper Arm] Pulse Oximetry 95 97 97 Oxygen Delivery Me thod Oxygen Flow Rate 05/08/25 17:32 05/08/25 17:47 05/08/25 18:02 Temperature Pulse Rate 94 112 H 73 Pulse Rate [Right Pulse Oximeter] Respiratory Rate 19 20 20 Blood Pressure 105/73 98/76 94/73 Blood Pressure [Le ft Upper Arm] Pulse Oximetry 94 98 95 Oxygen Delivery Me thod Room Air Oxygen Flow Rate 05/08/25 18:15 05/08/25 18:49 05/08/25 19:02 Temperature Pulse Rate 88 96 124 H Pulse Rate [Right Pulse Oximeter] Respiratory Rate 20 16 14 Blood Pressure 101/70 115/43 L 108/59 L Blood Pressure [Le ft Upper Arm] Pulse Oximetry 95 96 94 Oxygen Delivery Me thod Oxygen Flow Rate 05/08/25 19:03 Temperature Pulse Rate 128 H Pulse Rate [Right Pulse Oximeter] Respiratory Rate Blood Pressure Blood Pressure [Le ft Upper Arm] Pulse Oximetry Oxygen Delivery Me thod Oxygen Flow Rate <Bell Quinn MD - Last Filed: 05/08/25 15:56> Vital Signs, click to edit/add: Vital Signs - 24 hr 05/08/25 10:44 05/08/25 12:20 05/08/25 12:42 Temperature 97.0 F L Pulse Rate 125 H Pulse Rate [Right Pulse Oximeter] 74 Respiratory Rate 20 20 Blood Pressure 97/83 Blood Pressure [Le ft Upper Arm] 119/80 Pulse Oximetry 97 96 97 Oxygen Delivery Me thod Room Air Oxygen Flow Rate 05/08/25 13:02 05/08/25 13:32 05/08/25 14:38 Temperature Pulse Rate 116 H 103 H 145 H Pulse Rate [Right Pulse Oximeter] Respiratory Rate 16 20 24 Blood Pressure 96/77 116/96 H 104/70 Blood Pressure [Le ft Upper Arm] Pulse Oximetry 99 98 93 Oxygen Delivery Me thod Oxygen Flow Rate 05/08/25 14:47 05/08/25 15:01 05/08/25 15:16 Temperature Pulse Rate 137 H 98 90 Pulse Rate [Right Pulse Oximeter] Respiratory Rate 20 14 17 Blood Pressure 123/100 H 102/80 113/81 Blood Pressure [Le ft Upper Arm] Pulse Oximetry 94 98 97 Oxygen Delivery Me thod Oxygen Flow Rate 05/08/25 15:32 05/08/25 15:47 05/08/25 15:58 Temperature Pulse Rate 113 H 80 Pulse Rate [Right Pulse Oximeter] Respiratory Rate 13 18 Blood Pressure 109/74 106/75 Blood Pressure [Le ft Upper Arm] Pulse Oximetry 99 91 99 Oxygen Delivery Me thod Nasal Cannula Oxygen Flow Rate 2 05/08/25 16:16 05/08/25 16:31 05/08/25 17:04 Temperature Pulse Rate 97 110 H 78 Pulse Rate [Right Pulse Oximeter] Respiratory Rate 17 19 20 Blood Pressure 117/90 H 113/93 H 182/142 H Blood Pressure [Le ft Upper Arm] Pulse Oximetry 95 97 97 Oxygen Delivery Me thod Oxygen Flow Rate 05/08/25 17:32 05/08/25 17:47 05/08/25 18:02 Temperature Pulse Rate 94 112 H 73 Pulse Rate [Right Pulse Oximeter] Respiratory Rate 19 20 20 Blood Pressure 105/73 98/76 94/73 Blood Pressure [Le ft Upper Arm] Pulse Oximetry 94 98 95 Oxygen Delivery Me thod Room Air Oxygen Flow Rate 05/08/25 18:15 05/08/25 18:49 05/08/25 19:02 Temperature Pulse Rate 88 96 124 H Pulse Rate [Right Pulse Oximeter] Respiratory Rate 20 16 14 Blood Pressure 101/70 115/43 L 108/59 L Blood Pressure [Le ft Upper Arm] Pulse Oximetry 95 96 94 Oxygen Delivery Me thod Oxygen Flow Rate 05/08/25 19:03 Temperature Pulse Rate 128 H Pulse Rate [Right Pulse Oximeter] Respiratory Rate Blood Pressure Blood Pressure [Le ft Upper Arm] Pulse Oximetry Oxygen Delivery Me thod Oxygen Flow Rate <Kristel Harmon MD - Last Filed: 05/08/25 19:46> Course Course ED Course: IV is established. Patient is placed on hall monitor and continuous pulse ox. EKG, read by me, shows atrial fibrillation with RVR, pulse 125. Patient and son state the patient has never been in atrial fibrillation in the past. L of normal saline is ordered at this time. And labs were drawn. After L of normal saline, pulse is unchanged. Patient remains in AFib with RVR. Therefore we proceeded with 5 mg of IV metoprolol. Pulse came down into the 120s. Her blood work was unremarkable. X-ray shows moderate stool burden. We discussed this and patient wished to proceed with a enema. Patient had a small to moderate amount of stool output and felt better. Discussed patient with Dr. Beltran and Dr. Welsh, cardiology at [place], who recommended cardioversion. Patient consented to cardioversion. <Bell Quinn MD - Last Filed: 05/08/25 15:56> Vital Signs Vital signs: Initial Vital Signs Temperature 97.0 F L 05/08/25 10:44 Temperature Source Temporal Artery Scan 05/08/25 10:44 Pulse Rate 74 05/08/25 10:44 Respiratory Rate 20 05/08/25 10:44 Blood Pressure 119/80 05/08/25 10:44 Blood Pressure Mean 93 05/08/25 10:44 Blood Pressure Position Sitting 05/08/25 10:44 Pulse Oximetry 97 05/08/25 10:44 Oxygen Delivery Method Room Air 05/08/25 10:44 Vital Signs Temperature 97.0 F L 05/08/25 10:44 Pulse Rate 74 05/08/25 10:44 Respiratory Rate 20 05/08/25 10:44 Blood Pressure 119/80 05/08/25 10:44 Pulse Oximetry 97 05/08/25 10:44 Oxygen Delivery Method Room Air 05/08/25 10:44 Temperature 97.0 F L 05/08/25 10:44 Pulse Rate 128 H 05/08/25 19:03 Respiratory Rate 14 05/08/25 19:02 Blood Pressure 108/59 L 05/08/25 19:02 Pulse Oximetry 94 05/08/25 19:02 Oxygen Delivery Method Room Air 05/08/25 18:02 Oxygen Flow Rate 2 05/08/25 15:58 <Bell Quinn MD - Last Filed: 05/08/25 15:56> Initial Vital Signs Temperature 97.0 F L 05/08/25 10:44 Temperature Source Temporal Artery Scan 05/08/25 10:44 Pulse Rate 74 05/08/25 10:44 Respiratory Rate 20 05/08/25 10:44 Blood Pressure 119/80 05/08/25 10:44 Blood Pressure Mean 93 05/08/25 10:44 Blood Pressure Position Sitting 05/08/25 10:44 Pulse Oximetry 97 05/08/25 10:44 Oxygen Delivery Method Room Air 05/08/25 10:44 Vital Signs Temperature 97.0 F L 05/08/25 10:44 Pulse Rate 74 05/08/25 10:44 Respiratory Rate 20 05/08/25 10:44 Blood Pressure 119/80 05/08/25 10:44 Pulse Oximetry 97 05/08/25 10:44 Oxygen Delivery Method Room Air 05/08/25 10:44 Temperature 97.0 F L 05/08/25 10:44 Pulse Rate 128 H 05/08/25 19:03 Respiratory Rate 14 05/08/25 19:02 Blood Pressure 108/59 L 05/08/25 19:02 Pulse Oximetry 94 05/08/25 19:02 Oxygen Delivery Method Room Air 05/08/25 18:02 Oxygen Flow Rate 2 05/08/25 15:58 <Kristel Harmon MD - Last Filed: 05/08/25 19:46> Medications Administered Medications: Generic Name Dose Route Start Last Admin Trade Name Freq PRN Reason Stop Dose Admin Diltiazem HCl 125 mg/ Sodium 125 mls @ 5 mls/hr 05/08/25 17:15 05/08/25 19:32 Chloride IVPB 5 mls/hr .TITRATE MJ Infusion Protocol Discontinued Medications Generic Name Dose Route Start Last Admin Trade Name Freq PRN Reason Stop Dose Admin Digoxin 250 mcg 05/08/25 14:59 05/08/25 16:21 Digoxin 250 Mcg/Ml Inj IV 05/08/25 15:00 Not Given ONCE ONE Digoxin 500 mcg 05/08/25 18:39 05/08/25 19:03 Digoxin 250 Mcg/Ml Inj IV 05/08/25 18:40 500 mcg ONCE ONE Administration Diltiazem HCl 10 mg 05/08/25 17:13 05/08/25 17:41 Diltiazem 5 Mg/Ml Inj IVP 05/08/25 17:14 10 mg ONCE ONE Administration Sodium Chloride 1,000 mls @ 1,000 mls/hr 05/08/25 11:15 05/08/25 13:40 0.9 % Sodium Chloride 1000 Ml IV 05/08/25 12:14 Infused .Q1H MJ Infusion Metoprolol Tartrate 5 mg 05/08/25 13:41 05/08/25 14:37 Metoprolol Tartrate 1 Mg/Ml Inj IVP 05/08/25 13:42 5 mg ONCE ONE Administration Metoprolol Tartrate 2.5 mg 05/08/25 16:40 05/08/25 17:27 Metoprolol Tartrate 1 Mg/Ml Inj IVP 05/08/25 16:41 Not Given ONCE ONE Miscellaneous Medication 376 ml 05/08/25 12:40 05/08/25 14:00 Doc/Min Oil/Mag Cit/Sod Phos 376 Ml Enema W[place] 05/08/25 12:41 376 ml ONCE ONE Administration Ondansetron HCl 4 mg 05/08/25 11:20 05/08/25 12:21 Ondansetron 2 Mg/Ml Inj IVP 05/08/25 11:21 4 mg ONCE ONE Administration <Bell Quinn MD - Last Filed: 05/08/25 15:56> Generic Name Dose Route Start Last Admin Trade Name Freq PRN Reason Stop Dose Admin Diltiazem HCl 125 mg/ Sodium 125 mls @ 5 mls/hr 05/08/25 17:15 05/08/25 19:32 Chloride IVPB 5 mls/hr .TITRATE MJ Infusion Protocol Discontinued Medications Generic Name Dose Route Start Last Admin Trade Name Freq PRN Reason Stop Dose Admin Digoxin 250 mcg 05/08/25 14:59 05/08/25 16:21 Digoxin 250 Mcg/Ml Inj IV 05/08/25 15:00 Not Given ONCE ONE Digoxin 500 mcg 05/08/25 18:39 05/08/25 19:03 Digoxin 250 Mcg/Ml Inj IV 05/08/25 18:40 500 mcg ONCE ONE Administration Diltiazem HCl 10 mg 05/08/25 17:13 05/08/25 17:41 Diltiazem 5 Mg/Ml Inj IVP 05/08/25 17:14 10 mg ONCE ONE Administration Sodium Chloride 1,000 mls @ 1,000 mls/hr 05/08/25 11:15 05/08/25 13:40 0.9 % Sodium Chloride 1000 Ml IV 05/08/25 12:14 Infused .Q1H MJ Infusion Metoprolol Tartrate 5 mg 05/08/25 13:41 05/08/25 14:37 Metoprolol Tartrate 1 Mg/Ml Inj IVP 05/08/25 13:42 5 mg ONCE ONE Administration Metoprolol Tartrate 2.5 mg 05/08/25 16:40 05/08/25 17:27 Metoprolol Tartrate 1 Mg/Ml Inj IVP 05/08/25 16:41 Not Given ONCE ONE Miscellaneous Medication 376 ml 05/08/25 12:40 05/08/25 14:00 Doc/Min Oil/Mag Cit/Sod Phos 376 Ml Enema W[place] 05/08/25 12:41 376 ml ONCE ONE Administration Ondansetron HCl 4 mg 05/08/25 11:20 05/08/25 12:21 Ondansetron 2 Mg/Ml Inj IVP 05/08/25 11:21 4 mg ONCE ONE Administration <Kristel Harmon MD - Last Filed: 05/08/25 19:46> Medical Decision Making MDM Narrative Medical decision making narrative: 85-year-old female with AFib with RVR. Will admit for further management. <Bell Quinn MD - Last Filed: 05/08/25 15:56> 85-year-old female with AFib with RVR. Will admit for further management. Nitza was signed out by my colleague Dr. Quinn. At this time Nitza has had Lopressor 5 mg and is still in AFib with RVR although heart rate is improved. Heart rate started increasing and thus I did give Cardizem bolus 10 mg which decreased heart rate to 100s. Unfortunately blood pressure also dropped to 98 systolic although patient was asymptomatic to this. Prior to possible cardioversion I did want to talk to her elastic attacher coverstitch and was able to do so. Spoke with Dr. Moran in [place]. Dr. Moran notes this patient has a history of a cardiomyopathy and 2 years ago had as a echo with an EF of 40-45% with moderate MR. Patient also has a history of CHF. She does have history of frequent PVCs but no history of atrial fibrillation in the past. Dr. Moran felt that digoxin may help us with rate control and does suggest 500 mg at this time followed by 250 mg in 6 hours. Given the fact that patient is and has been experience significant grief reaction I would hesitate to cardiovert unless an echocardiogram confirms no change in her cardiomyopathy and EF. We certainly need to consider ?broken heart syndrome/takotsubo syndrome?. Assessment: 1. Atrial fibrillation with RVR-patient initially given metoprolol with improvement of rate control. Initial plans for cardioversion aborted as patient has history of significant grief over the past year, this is new onset AFib as well as unknown in regards to previous cardiac history. I had given a dose of Cardizem 10 mg IV which did decrease heart rate but also lowered blood pressure. We discontinued the Cardizem drip. Fortunately able to speak with Dr. Moran with plans for digoxin 500 mg IV now followed by 250 mg in 6 hours. Magnesium level 2.1 and potassium 3.9. Patient is allowed to eat supper but plan on NPO after midnight with echocardiogram in the morning. 2. Grief reaction 3. Weakness 4. Disposition-transferred to medical-surgical floor under the care of Dr. Beltran. <Kristel Harmon MD - Last Filed: 05/08/25 19:46> Medical Records Medical records reviewed: Yes I reviewed the patient's medical records <Kristel Harmon MD - Last Filed: 05/08/25 19:46> Lab Data Lab results reviewed: Yes I reviewed the patient's lab results <Bell Quinn MD - Last Filed: 05/08/25 15:56> Labs: Lab Results 05/08/25 Range/Units 12:20 WBC 7.09 (4.50-11.00) K/uL RBC 4.86 (4.00-5.20) m/uL Hgb 14.2 (12.0-16.0) gm/dL Hct 46.5 (33.0-51.0) % MCV 96 (80-100) fL MCH 29 (26-34) pg MCHC 31 L (32-36) gm/dL RDW Coeff of Carole 14.1 (11.5-15.5) % Plt Count 231 (140-440) K/uL Neut % (Auto) 76.5 H (42.0-72.0) % Lymph % (Auto) 14.5 L (20-44) % Dickinson % (Auto) 7.1 (0.0-11.0) % Eos % (Auto) 1.3 (0.0-7.0) % Baso % (Auto) 0.3 (0.0-3.0) % Neut # (Auto) 5.40 (1.7-7.0) K/uL Lymph # (Auto) 1.00 (0.90-2.90) K/uL Dickinson # (Auto) 0.50 (0.00-0.90) K/UL Eos # (Auto) 0.09 (0.00-0.50) K/uL Baso # (Auto) 0.02 (0.00-0.30) K/uL Abs Immat Gran (auto) 0.02 (0.00-0.30) K/uL Imm/Tot Granulo (auto) 0.3 % Sodium 142 (135-149) mmol/L Potassium 3.9 (3.6-5.1) mmol/L Chloride 111 (96-114) mmol/L Carbon Dioxide 23 (20-32) mmol/L Anion Gap 8 (7-15) mEq/L BUN 19 (7-30) mg/dL Creatinine 0.9 (0.5-1.5) mg/dL Estimated Creat Clear 39.20 Estimated GFR 63 ml/min Glucose 105 (60-115) mg/dL Lactate 1.6 (0.5-1.9) mmol/L Calcium 9.3 (8.4-10.6) mg/dL Magnesium 2.1 (1.5-2.6) mg/dL Total Bilirubin 1.7 H (0.1-1.5) mg/dL Direct Bilirubin 0.1 (0.0-0.5) mg/dL AST 28 (12-35) U/L ALT 37 H (4-35) U/L Alkaline Phosphatase 74 (40-150) U/L Total Creatine Kinase 37 L (41-117) U/L Troponin I 0.01 (0.01-0.04) ng/mL C-Reactive Protein < 0.5 L (0.5-1.0) mg/dL NT-Pro-B Natriuret Pep 3550 H (See Note) pg/mL Total Protein 6.8 (6.0-8.3) g/dL Albumin 4.0 (3.3-5.0) g/dL Lipase 67 (23-300) U/L TSH 2.830 (0.270-4.20) uIU/mL Urine Color Yellow (Yellow) Urine Appearance Clear (Clear) Urine pH 5.0 (5.0-8.5) Ur Specific [place] 1.010 (1.000-1.030) Urine Protein Negative (Negative) Urine Glucose (UA) Negative (Negative) Urine Ketones Negative (Negative) Urine Blood Negative (Negative) Urine Nitrite Positive A (Negative) Urine Bilirubin Negative (Negative) Urine Urobilinogen 0.2 (0.2-1.0) Ur Leukocyte Esterase Negative (Negative) Urine RBC 0-2 (0-2) Urine WBC 0-2 (0-5) Ur Squamous Epith Cells None (None-Few) Urine Bacteria Many A (None) Digoxin < 0.4 L (0.8-2.0) ng/mL Salicylates < 1.0 L (1.0-10) mg/dL Urine Opiates Screen Negative (Negative) Ur Buprenorphine Scrn Negative (Negative) Ur Oxycodone Screen Negative (Negative) Urine Methadone Screen Negative (Negative) Acetaminophen < 10.0 (10.0-30.0) ug/mL Ur Barbiturates Screen Negative (Negative) U Tricyclic Antidepress Negative (Negative) Ur Phencyclidine Scrn Negative (Negative) Ur Amphetamines Screen Negative (Negative) U Methamphetamines Scrn Negative (Negative) U Benzodiazepines Scrn Negative (Negative) Urine Cocaine Screen Negative (Negative) U Marijuana (THC) Screen Negative (Negative) Ur Drug Screen Comment See Note Monoscreen Negative (Negative) <Bell Quinn MD - Last Filed: 05/08/25 15:56> Lab Results 05/08/25 Range/Units 12:20 WBC 7.09 (4.50-11.00) K/uL RBC 4.86 (4.00-5.20) m/uL Hgb 14.2 (12.0-16.0) gm/dL Hct 46.5 (33.0-51.0) % MCV 96 (80-100) fL MCH 29 (26-34) pg MCHC 31 L (32-36) gm/dL RDW Coeff of Carole 14.1 (11.5-15.5) % Plt Count 231 (140-440) K/uL Neut % (Auto) 76.5 H (42.0-72.0) % Lymph % (Auto) 14.5 L (20-44) % Dickinson % (Auto) 7.1 (0.0-11.0) % Eos % (Auto) 1.3 (0.0-7.0) % Baso % (Auto) 0.3 (0.0-3.0) % Neut # (Auto) 5.40 (1.7-7.0) K/uL Lymph # (Auto) 1.00 (0.90-2.90) K/uL Dickinson # (Auto) 0.50 (0.00-0.90) K/UL Eos # (Auto) 0.09 (0.00-0.50) K/uL Baso # (Auto) 0.02 (0.00-0.30) K/uL Abs Immat Gran (auto) 0.02 (0.00-0.30) K/uL Imm/Tot Granulo (auto) 0.3 % Sodium 142 (135-149) mmol/L Potassium 3.9 (3.6-5.1) mmol/L Chloride 111 (96-114) mmol/L Carbon Dioxide 23 (20-32) mmol/L Anion Gap 8 (7-15) mEq/L BUN 19 (7-30) mg/dL Creatinine 0.9 (0.5-1.5) mg/dL Estimated Creat Clear 39.20 Estimated GFR 63 ml/min Glucose 105 (60-115) mg/dL Lactate 1.6 (0.5-1.9) mmol/L Calcium 9.3 (8.4-10.6) mg/dL Magnesium 2.1 (1.5-2.6) mg/dL Total Bilirubin 1.7 H (0.1-1.5) mg/dL Direct Bilirubin 0.1 (0.0-0.5) mg/dL AST 28 (12-35) U/L ALT 37 H (4-35) U/L Alkaline Phosphatase 74 (40-150) U/L Total Creatine Kinase 37 L (41-117) U/L Troponin I 0.01 (0.01-0.04) ng/mL C-Reactive Protein < 0.5 L (0.5-1.0) mg/dL NT-Pro-B Natriuret Pep 3550 H (See Note) pg/mL Total Protein 6.8 (6.0-8.3) g/dL Albumin 4.0 (3.3-5.0) g/dL Lipase 67 (23-300) U/L TSH 2.830 (0.270-4.20) uIU/mL Urine Color Yellow (Yellow) Urine Appearance Clear (Clear) Urine pH 5.0 (5.0-8.5) Ur Specific [place] 1.010 (1.000-1.030) Urine Protein Negative (Negative) Urine Glucose (UA) Negative (Negative) Urine Ketones Negative (Negative) Urine Blood Negative (Negative) Urine Nitrite Positive A (Negative) Urine Bilirubin Negative (Negative) Urine Urobilinogen 0.2 (0.2-1.0) Ur Leukocyte Esterase Negative (Negative) Urine RBC 0-2 (0-2) Urine WBC 0-2 (0-5) Ur Squamous Epith Cells None (None-Few) Urine Bacteria Many A (None) Digoxin < 0.4 L (0.8-2.0) ng/mL Salicylates < 1.0 L (1.0-10) mg/dL Urine Opiates Screen Negative (Negative) Ur Buprenorphine Scrn Negative (Negative) Ur Oxycodone Screen Negative (Negative) Urine Methadone Screen Negative (Negative) Acetaminophen < 10.0 (10.0-30.0) ug/mL Ur Barbiturates Screen Negative (Negative) U Tricyclic Antidepress Negative (Negative) Ur Phencyclidine Scrn Negative (Negative) Ur Amphetamines Screen Negative (Negative) U Methamphetamines Scrn Negative (Negative) U Benzodiazepines Scrn Negative (Negative) Urine Cocaine Screen Negative (Negative) U Marijuana (THC) Screen Negative (Negative) Ur Drug Screen Comment See Note Monoscreen Negative (Negative) <Kristel A Harmon, MD - Last Filed: 05/08/25 19:46> Imaging Data Abdominal x-ray: Attestation: I have reviewed the pertinent imaging results. <Kristel Harmon MD - Last Filed: 05/08/25 19:46> Radiologist's impression: No focal abnormally dilated loops of bowel are detected. Moderate colonic stool volume. There are osseous degenerative changes. IMPRESSION: Moderate colonic stool volume. <Kristel Harmon MD - Last Filed: 05/08/25 19:46> ECG Data Attestation: I personally reviewed and interpreted this ECG as follows: <Bell Quinn MD - Last Filed: 05/08/25 15:56> Discharge Plan Discharge Clinical Impression: Atrial fibrillation with RVR, Weakness, Grief, Constipation <Bell Quinn MD - Last Filed: 05/08/25 15:56> Patient Disposition: Admitted As Observation <Bell Quinn MD - Last Filed: 05/08/25 15:56> Condition: Stable <Bell Quinn MD - Last Filed: 05/08/25 15:56>
[2025-05-08 13:02] LABS: Cannabinoid Screen Urine Negative (Negative); Methamphetamines Screen Urine Negative (Negative); NT Pro B Type NatriureticPept* 3550 pg/mL (See Note); Tricyclic Antidepressant Urine Negative (Negative)
[2025-05-08] MEDS: DOC/MIN OIL/MAG CIT/SOD PHOS 376 ML ENEMA PR (14:00)
[2025-05-08] MEDS: METOPROLOL TARTRATE 1 MG/ML inj 5 MG IVP (14:37)
[2025-05-08 16:42] LABS: Digoxin* < 0.4 ng/mL (0.8-2.0)
[2025-05-08] MEDS: dilTIAZem 5 MG/ML inj 10 MG IVP (17:41)
[2025-05-08] MEDS: dilTIAZem HCL 125 MG in 0.9 % SODIUM CHLORIDE 100 ml 100 ML IVPB (17:42)
[2025-05-08] MEDS: DIGOXIN 250 MCG/ML inj 500 MCG IV (19:03)
--- NOTE | 2025-05-08 22:34 | PM.IMHP1 ---
Assessment and Plan Assessment and plan (1) Atrial fibrillation with RVR: Problem comment: - Has h/o CHF with EF 40-45%, no h/o afib, has been on anticoagulation chronically for h/o PE. She has taken her anticoagulation medication consistently, so can cardiovert if unstable VS - TSH noted, wnl - Obtain outside records - Admit to CCU for continuing diltiazem drip for rate control - hold losartan to allow for increased pressure to use rate control medications - Digoxin given in ER, will give second (reduced) dose and can reevaluate if 3rd dose is needed by morning - Obtain ECHO, troponin negative, so unlikely acute takotsubo event, but may have had one recently with already resolved troponin - Status: Acute (2) CHF (congestive heart failure): Problem comment: Acute on chronic Obtain records. Holding losartan due to blood pressure concerns. I will also hold bumetanide. Blood pressure and heart failure will likely improve once rate comes under control. If blood pressure has improved by tomorrow, start diuresis. Status: Acute (3) Constipation: Problem comment: - received an enema in the emergency department with 3 subsequent bowel movements, resolved - start senna S 1 tab daily Status: Acute (4) Grief: Problem comment: Takotsubo or broken heart syndrome is a consideration. Troponin is within normal limits, recheck in the morning. Check echocardiogram. Treat depression as below. Status: Acute (5) Depression: Problem comment: She discontinued SSRI due to GI side effects. Start low-dose venlafaxine. Continue outpatient therapy. Status: Chronic (6) Weakness: Problem comment: PT and OT evaluations Status: Acute (7) Chronic anticoagulation: Problem comment: Due to h/o PE. Continue Eliquis for this and now also for afib. Status: Chronic (8) Hyperlipidemia: Problem comment: Continue rosuvastatin. If LFTs worsen, hold this. Status: Chronic (9) GERD (gastroesophageal reflux disease): Problem comment: Start omeprazole Status: Suspected (10) Abnormal LFTs (liver function tests): Problem comment: Mild elevation of tbili and ALT. Suspect this is from liver congestion from CHF exacerbation Recheck in am Status: Acute (11) Weight loss: Problem comment: unintentional, patient reports 17lb weight loss, I am unable to confirm this. She does give h/o poor appetite and nutritional intake due to grief/depression. Start nutritional supplemenation. Status: Acute Total Time Spent Total Time Spent: Time spent: Today I spent 75 minutes seeing the patient, discussing with the patient, her son, and [id number] and answering their questions, discussing the patient with ER staff, reviewing Expanse and EPIC notes/diagnostics, discussing the care plan with our care team that includes social work, PT/OT, pharmacy, RT, fdc and documenting my impressions and plan in the medical record. MEDICAL NECESSITY FOR HOSPITALIZATION Anticipated midnights in the hospital: 2 Admitting diagnosis: Atrial fibrillation with rapid ventricular rate Risk of morbidity and mortality: high Acuity is characterized as high and reflected in: This is new onset atrial fibrillation with rapid ventricular response which is associated with heart failure and significant grief. Patient is at risk for having had or having a takotsubo and is requiring close post management and monitoring along with further investigation echocardiogram and repeat troponin. This patient will require hospital services as outlined in the assessment and plan in order to stabilize and be safely discharged to a lower level of care. Because of the risk and acuity as described above, this patient cannot be managed at a lower level of care. LENGTH OF STAY: 2 IP ? Anticipated LOS>2 midnights due to acuity of clinical presentation requiring inpatient level of care Hospitalist- H&P: HPI History of Present Illness Time Seen by Provider: 21:00 Date Seen: 05/08/25 Chief complaint: Legs turning blue, constipation, weakness Narrative: Nitza Tamez is a 85 year old female with a history of PE, DVT, cardiomyopathy, and heart failure with reduced ejection fraction who presented through the emergency department today for concerns of fatigue, not feeling well, and hurting all over. Her son and [id number] who are with her tell me that her legs were swollen and blue this morning. She and her lived in [place] for very long time and late last year he developed a brain bleed and was ill in other ways and then committed suicide. Nitza found his body which was very traumatic for her. Sometime after that her daughter had a stroke. There is also been a lot of drama in her friend community where she was living in [place]. Since her she has been very lonely and she describes a daily struggle just trying to be motivated to get things done or even eat. She feels extreme fatigue every day, but still tries to get up and do something, especially because she likes a clean house. Sleeping has been a real challenge in she typically only gets about 4 hours a night. She has been feeling short of breath with activity, but denies chest pain or pressure. She denies palpitations. She sometimes feels weak when she is walking and has to hold onto the wall. She sometimes gets a shooting pain that starts between the 1st and 2nd fingers of her left hand and goes up the back of her forearm. This can happen when she is resting or active and typically lasts for about 1 minute then resolves on its own. She had a lot of GI symptoms including abdominal pain and diarrhea while taking escitalopram and so she self discontinued this a few weeks ago and noted those symptoms resolved. She also gets nauseous frequently for which she uses an [id number] calcium tablet, similar to Tums. Since stopping escitalopram she has become constipated to the point where she has not had a bowel movement for for 5 days now. She has been living with her son and daughter in-law a more and more, but still occasionally travels back to [place]. She has been independent with her activities of daily living and medications. Per her son's suggestion she did start seeing a counselor, but will sometimes go several weeks without seeing him and does note worsening of grief at those times. She denies any recent viral illnesses. Other than self discontinuing escitalopram she has not had any other recent changes to her medications. She notes that she has been losing weight, possibly even 17 lb in the last 9 months. She will eat breakfast, but does not have an appetite after that and typically does not eat for the rest of the day. She notes that she just has known motivation to get up and do that. Review of Systems Status of ROS: Reports: 10 or more systems reviewed and unremarkable except as noted in History and below Medical Decision Making Medical Decision Making Code Status: DNI Has patient completed a Health Care Directive: Yes (Will bring it in) During This Stay, Who Would You Like To Make Decisions For You In The Event You Are Unable To Make Them For Yourself?: [facility] Medical History (Updated 05/09/25 @ 00:12 by Jennifer Beltran MD) CHF (congestive heart failure) ?I50.9 - Heart failure, unspecified (ICD-10) Hyperlipidemia ?E78.5 - Hyperlipidemia, unspecified (ICD-10) Chronic anticoagulation ?Z79.01 - prison (current) use of anticoagulants (ICD-10) DVT (deep venous thrombosis) ?I82.409 - Acute embolism and thrombosis of unspecified deep veins of unspecified lower extremity (ICD-10) Pulmonary embolism ?I26.99 - Other pulmonary embolism without acute cor pulmonale (ICD-10) Depression ?F32.A - Depression, unspecified (ICD-10) Social History (Updated 05/08/25 @ 22:47 by Jennifer Beltran MD) Narrative: 9 months ago. Nonsmoker. Denies alcohol use. No recreational drugs. What is your current living situation?: I presently have a place to live Problems where you live: no known problems Problems where you live details: None In the past 12 months, utilities in danger of being shut off: no In past 12 months, lack of transportation kept you from medical appts, meetings, work, or getting things needed for daily living: no In the past 12 mos, have been you worried that your food would run out before you had money to buy more?: never true In the past 12 mos, the food you bought just didn't last and you didn't have money to buy more?: never true Highest level of school completed/degree received: some college, no degree Smoking Status: Never smoker Do you use any of these nicotine containing products: None Second hand tobacco smoke exposure: No How often do you have a drink containing alcohol: never How many standard drinks containing alcohol do you have on a typical day: 3 or 4 How often do you have six or more drinks on one occasion: Never AUDIT-C Alcohol total score: 1 Non-prescribed substance use: denies use Caffeine: Yes (Two cups of coffee per day) How often does anyone, including family, friends and others, physically hurt you: never How often does anyone, including family, friends and others, insult or talk down to you: never How often does anyone, including family, friends and others, threaten you with harm: never How often does anyone, including family, friends and others, scream or curse at you: never service: No Meds Home Medications and Allergies Home Medications ?Medication ?Instructions ?Recorded ?Confirmed ?Type albuterol sulfate 90 mcg/actuation 2 puff inhalation Q4-6H PRN 11/05/24 11/05/24 Rx aerosol inhaler shortness of breath or wheezing #8.5 grams apixaban 5 mg tablet (Eliquis) 5 mg PO BID 11/05/24 05/08/25 History bumetanide 0.5 mg tablet 0.5 mg PO QDAY PRN 11/05/24 05/08/25 History losartan 50 mg tablet 50 mg PO QDAY 11/05/24 05/08/25 History mecobalamin (vitamin B12) 2,500 1,000 mcg PO DAILY 11/05/24 05/08/25 History mcg chewable tablet rosuvastatin 5 mg tablet 5 mg PO HS 11/05/24 05/08/25 History hydrocodone 5 mg-acetaminophen 325 1 tab PO Q4-6H PRN pain #15 tabs 01/30/25 05/08/25 Rx mg tablet cyanocobalamin (vitamin B-12) 1,000 mcg PO DAILY 05/08/25 05/08/25 History 1,000 mcg capsule escitalopram oxalate 5 mg tablet 5 mg PO DAILY 05/08/25 05/08/25 History Allergies Allergy/AdvReac Type Severity Reaction Status Date / Time cephalexin (From Razer) Allergy Intermediate Rash Verified 05/08/25 10:58 lexy Allergy Mild Rash Uncoded 05/08/25 10:58 Exam Narrative: Exam Narrative: General: Emotional distress. Hard of hearing. No respiratory distress. Awake alert oriented x3. HEENT: Normocephalic atraumatic, pupils equally round and reactive to light and accommodation. Oropharynx clear. Mucous membranes are moist. No cervical lymphadenopathy, thyromegaly or carotid bruits. JVD is present at 30?, hepatojugular reflux is also present. Cardiovascular: Irregularly irregular, tachycardic. No murmurs, gallops, or rubs. Chest: No increased work of breathing. Clear to auscultation bilaterally. No crackles or wheezes. Abdomen: Bowel sounds present. Soft, nondistended, nontender. No hepatosplenomegaly or masses. Extremities: 1+ bilateral lower extremity edema, no cyanosis or clubbing. Some small scattered bruises over her shins bilaterally. Skin: No jaundice, no pallor, no rashes on visible skin. Neuro: Grossly intact. No focal deficits. Const: Vital Signs, click to edit/add: Vital Signs - 24 hr 05/08/25 10:44 05/08/25 12:20 05/08/25 12:42 Temperature 97.0 F L Pulse Rate 125 H Pulse Rate [Right Pulse Oximeter] 74 Respiratory Rate 20 20 Blood Pressure 97/83 Blood Pressure [Le ft Upper Arm] 119/80 Pulse Oximetry 97 96 97 Oxygen Delivery Me thod Room Air Oxygen Flow Rate 05/08/25 13:02 05/08/25 13:32 05/08/25 14:38 Temperature Pulse Rate 116 H 103 H 145 H Pulse Rate [Right Pulse Oximeter] Respiratory Rate 16 20 24 Blood Pressure 96/77 116/96 H 104/70 Blood Pressure [Le ft Upper Arm] Pulse Oximetry 99 98 93 Oxygen Delivery Me thod Oxygen Flow Rate 05/08/25 14:47 05/08/25 15:01 05/08/25 15:16 Temperature Pulse Rate 137 H 98 90 Pulse Rate [Right Pulse Oximeter] Respiratory Rate 20 14 17 Blood Pressure 123/100 H 102/80 113/81 Blood Pressure [Le ft Upper Arm] Pulse Oximetry 94 98 97 Oxygen Delivery Me thod Oxygen Flow Rate 05/08/25 15:32 05/08/25 15:47 05/08/25 15:58 Temperature Pulse Rate 113 H 80 Pulse Rate [Right Pulse Oximeter] Respiratory Rate 13 18 Blood Pressure 109/74 106/75 Blood Pressure [Le ft Upper Arm] Pulse Oximetry 99 91 99 Oxygen Delivery Me thod Nasal Cannula Oxygen Flow Rate 2 05/08/25 16:16 05/08/25 16:31 05/08/25 17:04 Temperature Pulse Rate 97 110 H 78 Pulse Rate [Right Pulse Oximeter] Respiratory Rate 17 19 20 Blood Pressure 117/90 H 113/93 H 182/142 H Blood Pressure [Le ft Upper Arm] Pulse Oximetry 95 97 97 Oxygen Delivery Me thod Oxygen Flow Rate 05/08/25 17:32 05/08/25 17:47 05/08/25 18:02 Temperature Pulse Rate 94 112 H 73 Pulse Rate [Right Pulse Oximeter] Respiratory Rate 19 20 20 Blood Pressure 105/73 98/76 94/73 Blood Pressure [Le ft Upper Arm] Pulse Oximetry 94 98 95 Oxygen Delivery Me thod Room Air Oxygen Flow Rate 05/08/25 18:15 05/08/25 18:49 05/08/25 19:02 Temperature Pulse Rate 88 96 124 H Pulse Rate [Right Pulse Oximeter] Respiratory Rate 20 16 14 Blood Pressure 101/70 115/43 L 108/59 L Blood Pressure [Le ft Upper Arm] Pulse Oximetry 95 96 94 Oxygen Delivery Me thod Oxygen Flow Rate 05/08/25 19:03 05/08/25 19:17 05/08/25 19:32 Temperature Pulse Rate 128 H 118 H 98 Pulse Rate [Right Pulse Oximeter] Respiratory Rate 20 19 Blood Pressure 113/87 104/66 Blood Pressure [Le ft Upper Arm] Pulse Oximetry 98 95 Oxygen Delivery Me thod Oxygen Flow Rate 05/08/25 19:47 05/08/25 20:03 05/08/25 20:40 Temperature Pulse Rate 109 H 102 H Pulse Rate [Right Pulse Oximeter] Respiratory Rate 25 H 23 20 Blood Pressure 129/79 111/82 Blood Pressure [Le ft Upper Arm] Pulse Oximetry 96 94 97 Oxygen Delivery Me thod Room Air Oxygen Flow Rate Hospitalist - H&P: Result Labs Labs: Short CBC 05/08/25 Range/Units 12:20 WBC 7.09 (4.50-11.00) K/uL Hgb 14.2 (12.0-16.0) gm/dL Hct 46.5 (33.0-51.0) % Plt Count 231 (140-440) K/uL BMP 05/08/25 12:20 Sodium 142 Potassium 3.9 Chloride 111 Carbon Dioxide 23 BUN 19 Creatinine 0.9 Glucose 105 Calcium 9.3 Cardiac Enzymes 05/08/25 Range/Units 12:20 Total Creatine Kinase 37 L (41-117) U/L Troponin I 0.01 (0.01-0.04) ng/mL Liver Function 05/08/25 Range/Units 12:20 Total Bilirubin 1.7 H (0.1-1.5) mg/dL Direct Bilirubin 0.1 (0.0-0.5) mg/dL AST 28 (12-35) U/L ALT 37 H (4-35) U/L Alkaline Phosphatase 74 (40-150) U/L Albumin 4.0 (3.3-5.0) g/dL Urine 05/08/25 Range/Units 12:20 Urine Color Yellow (Yellow) Urine Appearance Clear (Clear) Urine pH 5.0 (5.0-8.5) Ur Specific Lee 1.010 (1.000-1.030) Urine Protein Negative (Negative) Urine Glucose (UA) Negative (Negative) Nine hundred twenty-four EKG: Atrial fibrillation with premature aberrantly conducted complexes, 92 beats per minute. Ordering Physician: Bell Quinn M.D. Date of Service: 05/08/25 Procedure(s): XR abdomen 1V Accession Number(s): [id number] cc: Bell Quinn M.D.; Provider,Not a Local~ For Patients: As a result of the Cures Act, medical imaging exams and procedure reports are released immediately into your electronic medical record. You may view this report before your referring provider. If you have questions, please contact your health care provider. INDICATION: Abdominal pain COMPARISON: 09/10/2024 CT of the abdomen and pelvis TECHNIQUE: Single frontal radiographic view(s) of the abdomen. FINDINGS: No focal abnormally dilated loops of bowel are detected. Moderate colonic stool volume. There are osseous degenerative changes. IMPRESSION: Moderate colonic stool volume. Dictated by Ori Rushing MD @ 05/08/2025 11:57:48 AM (Electronically Signed)
[2025-05-09] VITALS (10 sets, daily range): BP systolic 122–140; BP diastolic 63–97; PULSE 71–101; RESP 18–20; TEMP 36.1–36.8; O2SAT 93–96; BMI 36.8
[2025-05-09] MEDS: DIGOXIN 250 MCG/ML inj IV (01:15)
[2025-05-09] MEDS: OMEPRAZOLE 20 MG CAPSULE DR PO (06:38)
[2025-05-09 07:09] LABS: Hematocrit 43.7 % (33.0-51.0); Hemoglobin* 13.5 gm/dL (12.0-16.0); Immature Granulocytes Abs Auto 0.02 K/uL (0.00-0.30); Immature Granulocytes Pct Auto 0.3 %; Mean Corpuscular HGB Conc 31 gm/dL (32-36); Mean Corpuscular Hemoglobin 29 pg (26-34); Mean Corpuscular Volume 95 fL (80-100); RDW Coefficient of Variation % 13.9 % (11.5-15.5); Red Blood Count 4.61 m/uL (4.00-5.20); White Blood Count* 6.07 K/uL (4.50-11.00)
[2025-05-09 07:11] LABS: Lymphocytes Absolute Auto 1.00 K/uL (0.90-2.90); Slide Review Reflex No
[2025-05-09 07:24] LABS: Albumin* 3.6 g/dL (3.3-5.0); Chloride* 113 mmol/L (96-114); Potassium* 4.2 mmol/L (3.6-5.1); Sodium* 140 mmol/L (135-149)
--- NOTE | 2025-05-09 07:24 | PC.NURSE ---
This patient arrived to the floor via bed from the ED and was able to transfer onto her new bed via ambulation. Able to walk with stand by assistance with the use of her home cane. At risk of falling from unsteady gait. Cognition has been variable. Memory seems impaired and cognition sometimes altered. They arrived on IV digoxin with a goal of keeping her heart rate below 100. It was running at 5ml per hour. Telemetry showed atrial fibrillation with PVCs. At 0000 the patient?s heart rate was getting down to the 70s and 80s. Digoxin was stopped. Heart rate maintained itself in this range. Elevates to a range of 80-110 when ambulating.? +2 pitting edema of the ankles observed. Weak pedal pulses. Lung sounds are clear. Able to drink without risk of aspiration. An enema was given in the ED for constipation where she had several stools. No stools since arriving on the floor. Urine is yellow and clear but has a pungent odor. Nausea briefly around 0000 but not seen since. NPO at midnight per order. Appears to be in stable state of health at time of transfer of care.?
[2025-05-09 07:27] LABS: Alanine Aminotransferase* 35 U/L (4-35); Alkaline Phosphatase* 72 U/L (40-150); Anion Gap 6 mEq/L (7-15); Aspartate Amino Transferase* 27 U/L (12-35); Bilirubin Total* 1.8 mg/dL (0.1-1.5); Blood Urea Nitrogen* 15 mg/dL (7-30); Calcium* 9.0 mg/dL (8.4-10.6); Carbon Dioxide* 21 mmol/L (20-32); Creatinine* 0.9 mg/dL (0.5-1.5); Est. Creatinine Clearance* 39.20; Estimated Glomerular Filt Rate 63 ml/min; Glucose* 98 mg/dL (60-115); Total Protein* 6.2 g/dL (6.0-8.3)
[2025-05-09] MEDS: APIXABAN 5 MG TABLET PO (08:56)
[2025-05-09] MEDS: LACTATED RINGERS 1000 ML 1,000 ML 125 ML IV (09:00)
--- NOTE | 2025-05-09 09:29 | P.ANES_ITS ---
Anesthesia Charges Start Date/Time Anesthesia Start Date: 05/09/25 Anesthesia Start Time: 09:13 Stop Date/Time Anesthesia Stop Date: 05/09/25 Anesthesia Stop Time: 09:23 Summary Extremes of Age - Over 70 or under 1: METAL CHECKER Coding CPT Codes CPT Codes: ANESTH CORRECT HEART RHYTHM - 97274 ([id number]) P3 - PATIENT W/SEVERE SYS DISEASE, QK - FARMER AND GRAZIER 2-4 CNCRNT ANES PROC, QX - METAL CHECKER SVC W/ MD MED DIRECTION Additional Codes: Summary - Extremes of Age - Over 70 or under 1: METAL CHECKER ([id number])
--- NOTE | 2025-05-09 09:29 | W.ANESCHARGE ---
Anesthesia Charges Start Date/Time Anesthesia Start Date: 05/09/25 Anesthesia Start Time: 09:13 Stop Date/Time Anesthesia Stop Date: 05/09/25 Anesthesia Stop Time: 09:23 Summary Extremes of Age - Over 70 or under 1: CARDROOM SUPERVISOR Coding CPT Codes CPT Codes: ANESTH CORRECT HEART RHYTHM - 25890 ([id number]) P3 - PATIENT W/SEVERE SYS DISEASE, QK - RUBBISH COLLECTION SUPERVISOR 2-4 CNCRNT ANES PROC, QX - CARDROOM SUPERVISOR SVC W/ MD MED DIRECTION Additional Codes: Summary - Extremes of Age - Over 70 or under 1: CARDROOM SUPERVISOR ([id number])
--- NOTE | 2025-05-09 09:30 | P.ANES_ITS ---
Anesthesia Charges Start Date/Time Anesthesia Start Date: 05/09/25 Anesthesia Start Time: 09:13 Stop Date/Time Anesthesia Stop Date: 05/09/25 Anesthesia Stop Time: 09:23 Summary Extremes of Age - Over 70 or under 1: MDA Coding CPT Codes CPT Codes: ANESTH CORRECT HEART RHYTHM - 27755 ([id number]) P3 - PATIENT W/SEVERE SYS DISEASE, QK - INTERTYPE OPERATOR 2-4 CNCRNT ANES PROC, QX - MONEY ROOM TELLER SVC W/ MD MED DIRECTION Additional Codes: Summary - Extremes of Age - Over 70 or under 1: MDA ([id number])
--- NOTE | 2025-05-09 09:30 | W.ANESCHARGE ---
Anesthesia Charges Start Date/Time Anesthesia Start Date: 05/09/25 Anesthesia Start Time: 09:13 Stop Date/Time Anesthesia Stop Date: 05/09/25 Anesthesia Stop Time: 09:23 Summary Extremes of Age - Over 70 or under 1: MDA Coding CPT Codes CPT Codes: ANESTH CORRECT HEART RHYTHM - 50814 ([id number]) P3 - PATIENT W/SEVERE SYS DISEASE, QK - COSTUMING SUPERVISOR 2-4 CNCRNT ANES PROC, QX - INFANT AND TODDLER TEACHER SVC W/ MD MED DIRECTION Additional Codes: Summary - Extremes of Age - Over 70 or under 1: MDA ([id number])
--- NOTE | 2025-05-09 09:33 | PC.NURSE ---
Pt. in A. Fib with HR 80s-90s. Seen by Dr. Cyr this AM. Decision made to perform cardioversion. Informed consent obtained. Anesthesia and RT at bedside. Time out performed at 0915. Propofol administered by anesthesia. O2 administered by RT. 120J synchronized shock delivered at [address] Cyr. Pt. converted to NSR with occasional PVCs, HR 70s.
[2025-05-09] MEDS: VENLAFAXINE HCL ER 37.5 MG CAPSULE PO (10:15)
[2025-05-09] MEDS: SENNOSIDES/DOCUSATE TABLET 1 TAB PO (10:15)
[2025-05-09] MEDS: SODIUM CHLORIDE 0.9 % (FLUSH) 10 ML SYRINGE 5 ML IVF (10:15)
--- NOTE | 2025-05-09 11:06 | PM.PROC ---
Procedure Note Time Seen by Provider: 09:00 Date Seen: 05/09/25 Date of procedure: 05/09/25 Will [facility] bill your pro fee for this procedure?: Yes Pre-op diagnosis: Atrial fibrillation with rapid ventricular response Post-op diagnosis: same Procedure: Electrical Cardioversion Procedure Description: After discussion of risks benefits and alternatives patient agrees to electrical cardioversion to treat her atrial fibrillation with rapid ventricular response. Written and verbal consent obtained. Anesthesia staff present for sedation management. Time-out taken to confirm proper procedure and patient identification. Pads are placed in AP position. Vital sign monitoring and cardiac monitoring continuously. One hundred twenty joules of biphasic synchronized shock applied. Converted to sinus rhythm. No complications. Patient awoke from anesthesia without difficulties. Anesthesia: MAC Surgeon: Leonid Cyr
--- NOTE | 2025-05-09 11:10 | P.DS_ITS ---
DS: Providers Provider Date Seen: 05/09/25 Date of admission: 05/08/25 23:27 Primary care physician: Not a Local Provider Admitting Clinician: Jennifer Beltran MD Attending Physician on discharge: Leonid Cyr MD Date of Discharge: 05/09/25 DS: Diagnosis Discharge Diagnosis (1) Atrial fibrillation with RVR: Status: Acute Problem details: - Has h/o CHF with EF 40-45%, no h/o afib, has been on anticoagulation chronically for h/o PE. She has taken her anticoagulation medication consistently, so can cardiovert if unstable VS - TSH noted, wnl - Obtain outside records - Admit to CCU for continuing diltiazem drip for rate control - hold losartan to allow for increased pressure to use rate control medications - Digoxin given in ER, will give second (reduced) dose and can reevaluate if 3rd dose is needed by morning - Obtain ECHO, troponin negative, so unlikely acute takotsubo event, but may have had one recently with already resolved troponin - (2) Loss of appetite: Status: Acute (3) Chronic anticoagulation: Status: Chronic Problem details: Due to h/o PE. Continue Eliquis for this and now also for afib. (4) CHF (congestive heart failure): Status: Acute Problem details: History of ejection fraction of 40-45%. Preliminary echo today shows ejection fraction of 40%. Also noted mitral regurgitation and pulmonary hypertension. (5) Mitral regurgitation: Status: Acute (6) Pulmonary hypertension: Status: Acute Problem details: Patient has history of pulmonary emboli for which she is on Eliquis. Unknown history of pulmonary hypertension. No known chronic lung disease. DS: Summary Hospital Course Hospital Course: Admission HPI: Nitza Tamez is a 85 year old female with a history of PE, DVT, cardiomyopathy, and heart failure with reduced ejection fraction who presented through the emergency department today for concerns of fatigue, not feeling well, and hurting all over. Her son and [id number] who are with her tell me that her legs were swollen and blue this morning. She and her lived in [place] for very long time and late last year he developed a brain bleed and was ill in other ways and then committed suicide. Nitza found his body which was very traumatic for her. Sometime after that her daughter had a stroke. There is also been a lot of drama in her friend community where she was living in [place]. Since her she has been very lonely and she describes a daily struggle just trying to be motivated to get things done or even eat. She feels extreme fatigue every day, but still tries to get up and do something, especially because she likes a clean house. Sleeping has been a real challenge in she typically only gets about 4 hours a night. She has been feeling short of breath with activity, but denies chest pain or pressure. She denies palpitations. She sometimes feels weak when she is walking and has to hold onto the wall. She sometimes gets a shooting pain that starts between the 1st and 2nd fingers of her left hand and goes up the back of her forearm. This can happen when she is resting or active and typically lasts for about 1 minute then resolves on its own. She had a lot of GI symptoms including abdominal pain and diarrhea while taking escitalopram and so she self discontinued this a few weeks ago and noted those symptoms resolved. She also gets nauseous frequently for which she uses an [id number] calcium tablet, similar to Tums. Since stopping escitalopram she has become constipated to the point where she has not had a bowel movement for for 5 days now. She has been living with her son and daughter in-law a more and more, but still occasionally travels back to [place]. She has been independent with her activities of daily living and medications. Per her son's suggestion she did start seeing a counselor, but will sometimes go several weeks without seeing him and does note worsening of grief at those times. She denies any recent viral illnesses. Other than self discontinuing escitalopram she has not had any other recent changes to her medications. She notes that she has been losing weight, possibly even 17 lb in the last 9 months. She will eat breakfast, but does not have an appetite after that and typically does not eat for the rest of the day. She notes that she just has known motivation to get up and do that. May 09 2024: Patient reports feeling better today. She reports she slept better last night than she has for the past 3 weeks for she has been feeling ill. She is hungry. No shortness of breath. Heart rate control overnight has improved with pulse now mostly between with 90 and 105 at rest. After discussion of risks benefits and alternatives she elects to proceed to ardioversion. She reports she has been reliably taking her Eliquis for the past month. This is accomplished without complication and is successful. See separate procedure note for details. Following cardioversion she continues to feel well. Status at Discharge Overall status at discharge: patient is back to baseline Time Spent with Patient Time attestation: Total time spent providing and/or coordinating discharge services: 55 minutes Exam Narrative: Exam Narrative: She is alert and appears in no distress. She gives her own history with good detail. Respirations are clear to auscultation. Cardiovascular: S1, S2, irregular tachycardia. Abdomen is soft without tenderness or mass. Extremities with mild to moderate edema. Good peripheral perfusion Const: Vital Signs, click to edit/add: Vital Signs - 24 hr 05/08/25 12:20 05/08/25 12:42 05/08/25 13:02 Temperature Pulse Rate 125 H 116 H Pulse Rate [Apical ] Pulse Rate [Left P ulse Oximeter] Respiratory Rate 20 16 Blood Pressure 97/83 96/77 Blood Pressure [Ri ght Arm] Pulse Oximetry 96 97 99 Oxygen Delivery Me thod Oxygen Flow Rate 05/08/25 13:32 05/08/25 14:38 05/08/25 14:47 Temperature Pulse Rate 103 H 145 H 137 H Pulse Rate [Apical ] Pulse Rate [Left P ulse Oximeter] Respiratory Rate 20 24 20 Blood Pressure 116/96 H 104/70 123/100 H Blood Pressure [Ri ght Arm] Pulse Oximetry 98 93 94 Oxygen Delivery Me thod Oxygen Flow Rate 05/08/25 15:01 05/08/25 15:16 05/08/25 15:32 Temperature Pulse Rate 98 90 113 H Pulse Rate [Apical ] Pulse Rate [Left P ulse Oximeter] Respiratory Rate 14 17 13 Blood Pressure 102/80 113/81 109/74 Blood Pressure [Ri ght Arm] Pulse Oximetry 98 97 99 Oxygen Delivery Me thod Oxygen Flow Rate 05/08/25 15:47 05/08/25 15:58 05/08/25 16:16 Temperature Pulse Rate 80 97 Pulse Rate [Apical ] Pulse Rate [Left P ulse Oximeter] Respiratory Rate 18 17 Blood Pressure 106/75 117/90 H Blood Pressure [Ri ght Arm] Pulse Oximetry 91 99 95 Oxygen Delivery Me thod Nasal Cannula Oxygen Flow Rate 2 05/08/25 16:31 05/08/25 17:04 07/09/25 17:32 Temperature Pulse Rate 110 H 78 94 Pulse Rate [Apical ] Pulse Rate [Left P ulse Oximeter] Respiratory Rate 19 20 19 Blood Pressure 113/93 H 182/142 H 105/73 Blood Pressure [Ri ght Arm] Pulse Oximetry 97 97 94 Oxygen Delivery Me thod Oxygen Flow Rate 05/08/25 17:47 05/08/25 18:02 05/08/25 18:15 Temperature Pulse Rate 112 H 73 88 Pulse Rate [Apical ] Pulse Rate [Left P ulse Oximeter] Respiratory Rate 20 20 20 Blood Pressure 98/76 94/73 101/70 Blood Pressure [Ri ght Arm] Pulse Oximetry 98 95 95 Oxygen Delivery Me thod Room Air Oxygen Flow Rate 05/08/25 18:49 05/08/25 19:02 05/08/25 19:03 Temperature Pulse Rate 96 124 H 128 H Pulse Rate [Apical ] Pulse Rate [Left P ulse Oximeter] Respiratory Rate 16 14 Blood Pressure 115/43 L 108/59 L Blood Pressure [Ri ght Arm] Pulse Oximetry 96 94 Oxygen Delivery Me thod Oxygen Flow Rate 05/08/25 19:17 05/08/25 19:32 05/08/25 19:47 Temperature Pulse Rate 118 H 98 109 H Pulse Rate [Apical ] Pulse Rate [Left P ulse Oximeter] Respiratory Rate 20 19 25 H Blood Pressure 113/87 104/66 129/79 Blood Pressure [Ri ght Arm] Pulse Oximetry 98 95 96 Oxygen Delivery Me thod Oxygen Flow Rate 05/08/25 20:03 05/08/25 20:40 05/08/25 22:32 Temperature 98.1 F Pulse Rate 102 H Pulse Rate [Apical ] Pulse Rate [Left P ulse Oximeter] 99 Respiratory Rate 23 20 20 Blood Pressure 111/82 Blood Pressure [Ri ght Arm] 101/72 Pulse Oximetry 94 97 97 Oxygen Delivery Me thod Room Air Room Air Oxygen Flow Rate 05/08/25 23:27 05/08/25 23:33 05/09/25 00:35 Temperature 98 F Pulse Rate 101 H Pulse Rate [Apical ] Pulse Rate [Left P ulse Oximeter] 95 Respiratory Rate 18 Blood Pressure Blood Pressure [Ri ght Arm] 121/80 Pulse Oximetry 95 95 Oxygen Delivery Me thod Oxygen Flow Rate 05/09/25 00:37 05/09/25 01:15 05/09/25 01:20 Temperature 97.8 F Pulse Rate 81 90 Pulse Rate [Apical ] Pulse Rate [Left P ulse Oximeter] 86 Respiratory Rate 18 Blood Pressure Blood Pressure [Ri ght Arm] 122/78 Pulse Oximetry 94 Oxygen Delivery Me thod Room Air Oxygen Flow Rate 05/09/25 03:00 05/09/25 03:00 05/09/25 05:15 Temperature 98.3 F 98.2 F Pulse Rate 79 Pulse Rate [Apical ] Pulse Rate [Left P ulse Oximeter] 80 90 Respiratory Rate 18 18 Blood Pressure Blood Pressure [Ri ght Arm] 140/87 H 128/97 H Pulse Oximetry 93 95 Oxygen Delivery Me thod Room Air Room Air Oxygen Flow Rate 05/09/25 07:15 05/09/25 07:42 05/09/25 07:42 Temperature 97.2 F L Pulse Rate 96 Pulse Rate [Apical ] Pulse Rate [Left P ulse Oximeter] 98 Respiratory Rate 20 20 Blood Pressure Blood Pressure [Ri ght Arm] 133/83 Pulse Oximetry 96 96 Oxygen Delivery Me thod Room Air Room Air Oxygen Flow Rate 05/09/25 09:25 05/09/25 11:01 Temperature 97.0 F L Pulse Rate 91 Pulse Rate [Apical ] 71 Pulse Rate [Left P ulse Oximeter] Respiratory Rate 18 Blood Pressure Blood Pressure [Ri ght Arm] 123/63 Pulse Oximetry 95 Oxygen Delivery Me thod Room Air Oxygen Flow Rate Documenting provider has reviewed patient's vital signs: yes DS: Data Data Completed and Pending Labs on day of discharge: Labs from last 24 hours 05/09/25 05/08/25 07:01 12:20 WBC 6.07 7.09 RBC 4.61 4.86 Hgb 13.5 14.2 Hct 43.7 46.5 MCV 95 96 MCH 29 29 MCHC 31 L 31 L RDW Coeff of Carole 13.9 14.1 Plt Count 192 231 Neut % (Auto) 72.5 H 76.5 H Lymph % (Auto) 16.1 L 14.5 L Merrick % (Auto) 8.2 7.1 Eos % (Auto) 2.6 1.3 Baso % (Auto) 0.3 0.3 Neut # (Auto) 4.40 5.40 Lymph # (Auto) 1.00 1.00 Merrick # (Auto) 0.50 0.50 Eos # (Auto) 0.16 0.09 Baso # (Auto) 0.02 0.02 Abs Immat Gran (auto) 0.02 0.02 Imm/Tot Granulo (auto) 0.3 0.3 Sodium 140 142 Potassium 4.2 3.9 Chloride 113 111 Carbon Dioxide 21 23 Anion Gap 6 L 8 BUN 15 19 Creatinine 0.9 0.9 Estimated Creat Clear 39.20 39.20 Estimated GFR 63 63 Glucose 98 105 Hemoglobin A1c 5.5 Lactate 1.6 Calcium 9.0 9.3 Magnesium 2.1 Total Bilirubin 1.8 H 1.7 H Direct Bilirubin 0.1 AST 27 28 ALT 35 37 H Alkaline Phosphatase 72 74 Total Creatine Kinase 37 L Troponin I 0.02 0.01 C-Reactive Protein < 0.5 L NT-Pro-B Natriuret Pep 3550 H Total Protein 6.2 6.8 Albumin 3.6 4.0 Lipase 67 TSH 2.830 Urine Color Yellow Urine Appearance Clear Urine pH 5.0 Ur Specific [place] 1.010 Urine Protein Negative Urine Glucose (UA) Negative Urine Ketones Negative Urine Blood Negative Urine Nitrite Positive A Urine Bilirubin Negative Urine Urobilinogen 0.2 Ur Leukocyte Esterase Negative Urine RBC 0-2 Urine WBC 0-2 Ur Squamous Epith Cells None Urine Bacteria Many A Digoxin < 0.4 L Salicylates < 1.0 L Urine Opiates Screen Negative Ur Buprenorphine Scrn Negative Ur Oxycodone Screen Negative Urine Methadone Screen Negative Acetaminophen < 10.0 Ur Barbiturates Screen Negative U Tricyclic Antidepress Negative Ur Phencyclidine Scrn Negative Ur Amphetamines Screen Negative U Methamphetamines Scrn Negative U Benzodiazepines Scrn Negative Urine Cocaine Screen Negative U Marijuana (THC) Screen Negative Ur Drug Screen Comment See Note Monoscreen Negative Preliminary micro results at discharge 05/08/25 12:20 Urine Culture - Preliminary Urine,Clean Catch Gram negative cecil Discharge Plan Discharge Disposition: Home, Self-Care Date of Admission: 05/08/25 23:27 Attending Provider on Discharge: Jarocho Cyr Primary Care Provider: Provider,Not a Local Condition: Stable Anticipated Discharge Date/Time: 05/09/25 11:16 Discharge Medications: Continued mecobalamin (vitamin B12) 2,500 mcg tablet,chewable 1,000 mcg PO DAILY losartan 50 mg tablet 50 mg PO DAILY Eliquis 5 mg tablet 5 mg PO BID bumetanide 0.5 mg tablet 0.5 mg PO DAILY PRN rosuvastatin 5 mg tablet 5 mg PO HS cyanocobalamin (vitamin B-12) 1,000 mcg capsule 1,000 mcg PO DAILY hydrocodone-acetaminophen 5-325 mg tablet 1 tab PO Q4-6H PRN (Reason: pain) Qty: 15 0RF Discharge Orders: Discharge Order (Routine); Ordered 05/09/25 Ordered By: Jarocho Cyr Additional Instructions: If you feel ill as you did prior to admission. Check your pulse and blood pressure at home. If your heart is racing, resting heart rate over 120, you are probably in atrial fibrillation again. Return to the emergency room if your heart is racing at rest. Use laxatives as needed. Activity Level: No Restrictions Discharge Diet: Heart Healthy (2 gm sodium, low fat) Follow Up Appointments: [facility] [Other] Referral Note: Follow-up at next available appointment in [place]. Tali Ruiz PA-C [Physician Senior Engineering Team Leader, Family Practice] Referral Note: Follow-up in 1-2 weeks, next available appointment. Forms: [facility] Info Instructions
[2025-05-09] MEDS: PERFLUTREN LIPID MICROSPHERES 2 ML VIAL IVP (11:30)
== END 2025-05-09 13:56 | disposition home or self-care (01) | DRG 308 ==
LOC: ED 16:16 → MEDSURG 20:10
PROVIDERS: Admitting Provider Family Medicine; Emergency Provider Family Medicine; Visit Provider Family Medicine
DX: I48.91 Unspecified atrial fibrillation (principal); I50.23 Acute on chronic systolic (congestive) heart failure; I11.0 Hypertensive heart disease with heart failure; I34.0 Nonrheumatic mitral (valve) insufficiency; I27.20 Pulmonary hypertension, unspecified; Z79.01 Long term (current) use of anticoagulants; F43.21 Adjustment disorder with depressed mood; F32.A Depression, unspecified; K59.00 Constipation, unspecified; R63.0 Anorexia; R63.4 Abnormal weight loss; R79.89 Other specified abnormal findings of blood chemistry; Z86.711 Personal history of pulmonary embolism; Z86.718 Personal history of other venous thrombosis and embolism; K21.9 Gastro-esophageal reflux disease without esophagitis; E78.5 Hyperlipidemia, unspecified
CPT/HCPCS: 00410; 36415; 74018; 80048; 80053; 80076; 80143; 80162; 80179; 80306; 81001; 82550; 83036; 83605; 83690; 83735; 83880; 84443; 84484; 85025; 86140; 86308; 87086; 93005; 93306; 94761; 97161; 97165; 99100; 99284; 99285; A9270; J1160; J2405; J2704; J3490; J7030; J7120; Q9957

== ENCOUNTER 2025-05-16 12:03 | Outpatient (CLI) | payer OTHER, SELFPAY | END 2025-05-16 12:04 | disposition home or self-care (01) | LOC: LKVREF 12:04 | PROVIDERS: PCP Emergency Medicine; Visit Provider Emergency Medicine | DX: I10 Essential (primary) hypertension (principal) | CPT/HCPCS: 80048 ==